=== PATIENT | male | born 1955 | race Caucasian/White ===

== ENCOUNTER 2024-01-09 20:42 | Inpatient (IN) | payer OTHER, SELFPAY ==
[2024-01-09] VITALS (11 sets, daily range): BP systolic 121–154; BP diastolic 57–95; BMI 36.5; BMI 36.6
[2024-01-09 16:30] LABS: % Basophils 0.1 % (0-2); % Eosinophils 0.5 % (0-6); % Immature Granulocytes 0.5 % (0-0.5); % Lymphocytes 15.3 % (20.5-51.1); % Monocytes 4.9 % (1.7-9.3); % Neutrophils 78.7 % (42.2-75.2); Absolute Eosinophils 0.1 10^3/uL (0-0.7); Absolute Immature Granulocytes 0.1 10^3/uL (0-0.05); Absolute Lymphocytes 1.7 10^3/uL (1.2-3.4); Absolute Monocytes 0.5 10^3/uL (0.1-0.6); Absolute Neutrophils 8.7 10^3/uL (1.4-6.5); Hematocrit 36.4 % (39.0-52.0); Hemoglobin 11.3 g/dL (13.0-18.0); Mean Corpuscular Hgb 21.2 pg (27.0-31.0); Mean Corpuscular Volume 68.3 fL (80.0-94.0); Mean Platelet Volume 10.9 fL (7.4-10.4); Nucleated Red Blood Cells % 0 % (-); Platelet Count 363 10^3/uL (130-400); Red Blood Cell Count 5.33 10^6/uL (4.70-6.10); Red Cell Dist. Width 20.6 % (11.5-14.5); White Blood Cell Count 11.1 10^3/uL (4.8-10.8)
--- NOTE | 2024-01-09 16:41 | ED.GENMED ---
History of Present Illness
<Gina Agudelo PA-C - Last Filed: 01/09/24 21:27>
General
Chief Complaint: Heart Rate Problem
Source: patient
Exam Limitations: none
Time Seen by Provider: 01/09/24 16:13
Nursing documentation reviewed up to this point in time: agreed with
Travel History
Have you had any contact with someone who has COVID-19?: No
Do you have any symptoms of coronavirus? Fever > 100 degrees, chills, cough, shortness of breath, sore throat, loss of taste or smell, muscle aches, or headache?: No
History of Present Illness
History of Present Illness:
68 y/o M with h/o afib on eliquis, CA, htn, hld, IDDM
here with feeling of palpitaitons
pt says he was dx with afib a few yeras ago but then had no events until 4 days ago when he spontaneously felt sudden chest pain, tachycardia
hr was 150s
pt's primary dogman/woman is [place] but pt was nearby to [place] so he went there
Patient had previously been on metoprolol for years but they admitted him on a Cardizem drip it sounds as if the patient converted to sinus rhythm before he was discharged but he cannot be sure. He does know that the last couple of days he has been
taking the oral diltiazem and has been feeling a little 'off' like lightheaded and thought it was just a side effect of the medication. Then last evening when he was out to dinner he felt some palpitations and did not finish his dinner. He had no
shortness of breath or chest pain. Patient did not sleep last night and was aware of his heart rate. It was never fast. Today he used his Apple Watch to obtain an ECG which notified him he was in A-fib so that is why he is here. Patient says he
is not short of breath, there is no syncope, leg edema, pleuritic pain in his chest, exertional discomfort. He has never been cardioverted. Patient has an appointment to see Dr. Gaona as a new patient at the end of this month. That is why he is
at this hospital
Past History
<Gina Agudelo PA-C - Last Filed: 01/09/24 21:27>
Past History
ED Past Medical History: Arrthythmia, CAD, HTN, Hypercholesterolemia and IDDM
Social History
Tobacco: Non-smoker
Alcohol: None
Drug: None
Personal:
Review of Systems
<MARCELLO Johnson Last Filed: 01/09/24 21:27>
Review of Systems
Allergies reviewed?: Yes
All Other Systems: Not applicable
Phy Exam
<MARCELLO Johnson Last Filed: 01/09/24 21:27>
Physical Exam
Physical Exam:
GENERAL: Alert , in no apparent distress
EYE: pupils equal and reactive
NECK: Supple
ENT: o/p clr, mmm.
CARDIAC: Irregularly irregular, rate in the 90s
LUNGS: Clear breath sounds bilaterally, no acute respiratory distress, no wheezes/rales/rhonchi
ABDOMEN: Soft, without focal tenderness, no r/g, no cvat, normal bowel sounds
NEUROLOGICAL: Alert and oriented, no focal neuro deficits
SKIN: Warm and dry, skin intact.
MUSCULOSKELETAL: No edema, well perfused. neg uma's sign
PSYCH: Normal and appropriate interaction.
Course
<MARCELLO Johnson Last Filed: 01/09/24 21:27>
Orders/Labs/Results
Orders:
Orders
01/09/24 Lunch
1800 calorie (15 carb) Diabetic
At Your Request: Limited Participation
01/09/24 14:26
EKG [Electrocardiogram (*1)] Urgent
Reason for Study: Palpitations
EKG- Treatment ONCE
01/09/24 16:18
Complete Blood Count/With Diff Urgent
Comprehensive Metabolic Panel Urgent
Glycohemoglobin (HgbA1c) Urgent
Iron Urgent
Comment: ADD ON
TSH Reflex To Free T4 Urgent
Comment: ADD ON
Total Iron Binding Urgent
Comment: ADD ON
Troponin I Urgent
Vitamin B12 Urgent
Comment: ADD ON
01/09/24 16:52
Propofol [Diprivan] 20 ml .ROUTE .STK-MED
Propofol [Diprivan] 20 ml .ROUTE .STK-MED
01/09/24 18:31
Troponin I Q6H
01/09/24 20:03
Admit/Transfer Patient As Directed
Co-Sign Provider:
Level of Care: Inpatient admission
Assign to:: Telemetry
Physician / Group: Francisco Valentine
Diagnosis: Symptomatic Afib
Reason for Telemetry: Arrhythmia
Date to Stop Telemetry: 01/12/24
Time to Stop Telemetry: 11:00
Reason for Hospitalization: Symptomatic Afib
Expected length of stay greater than two midnights?: Yes
ELOS- Estimated Length of Stay in days: 2
I certify the patient meets the requirements for IP care: Yes
01/09/24 20:07
Code Status As Directed
Resuscitation Status: Full Code
01/09/24 20:13
Apixaban [Eliquis] 5 mg PO ONCE ONE
01/09/24 20:14
Dextrose 50%-Water [Dextrose 50% Syringe] 12.5 grams IV [id number] PRN
Glucagon [GlucaGen] 1 mg IM PRN PRN
Bedside Glucose Monitoring As Directed
Frequency: AC&HS
Additional Instructions:: Change to q6h if pt on TPN, tube feeding or not eating
01/09/24 20:15
Apixaban [Eliquis] 5 mg PO BID
01/09/24 20:20
CARDIOLOGY CONSULT Routine
Consulting Provider: Moses Jiménez
Was physician already notified: Yes
Reason for consult: symptomatic afib
01/09/24 20:38
Add On- LAB Routine
Tests Added?: TSH reflex T4, A1c, B12, Iron, TIBC
01/09/24 21:22
Acetaminophen [Tylenol] 650 mg PO Q4HPRN PRN
Bisacodyl [Dulcolax] 10 mg RECTAL [id number] PRN
Docusate W/Senna [Senokot-S] 1 tablet PO BIDPRN PRN
Levalbuterol [Xopenex 1.25 mg Inhalant Solution] 1.25 mg INH R Q6HPRN PRN
Metoprolol [Lopressor] 5 mg IV Q4HPRN PRN
Polyethylene Glycol Powder [Miralax] 17 grams PO DAILYPRN PRN
01/09/24 21:22
Activity As Directed
Activity Level: With Assistance
Vital Signs As Directed
Frequency: Per unit guidelines
Xopenex Reason for Use As Directed
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
01/09/24 22:00
Atorvastatin [Lipitor] 40 mg PO HS
01/10/24 06:00
Basic Metabolic Panel IN AM
Complete Blood Count/No Diff IN AM
Magnesium IN AM
Troponin I IN AM
01/10/24 07:30
Insulin Aspart Corrective Mod [Novolog Flexpen-Moderate Resistance] See Protocol SC AC
insulin lispro-aabc [Lyumjev KwikPen U-100 Insulin] 5 unit SC AC
01/10/24 08:00
Apixaban [Eliquis] 5 mg PO BID
Diltiazem Extended Release [Cardizem Cd] 240 mg PO DAILY
Losartan [Cozaar] 50 mg PO DAILY
Pantoprazole [Protonix] 40 mg PO DAILY
Prednisone [Deltasone] 10 mg PO DAILY
Trelegy Ellipta 1 puff INH R DAILY
febuxostat 40 mg PO DAILY
insulin glargine U-300 conc [Toujeo Max U-300 SoloStar] 10 unit SC DAILY
01/11/24 06:00
Basic Metabolic Panel IN AM
Complete Blood Count/No Diff IN AM
Magnesium IN AM
01/12/24 06:00
Basic Metabolic Panel IN AM
Complete Blood Count/No Diff IN AM
Magnesium IN AM
01/12/24 11:00
DC Protocol for Telemetry ONCE
01/13/24 06:00
Basic Metabolic Panel IN AM
Complete Blood Count/No Diff IN AM
Magnesium IN AM
01/14/24 06:00
Basic Metabolic Panel IN AM
Complete Blood Count/No Diff IN AM
Magnesium IN AM
01/15/24 06:00
Basic Metabolic Panel IN AM
Complete Blood Count/No Diff IN AM
Magnesium IN AM
01/16/24 06:00
Basic Metabolic Panel IN AM
Complete Blood Count/No Diff IN AM
Magnesium IN AM
Abnormal Lab Results
01/09/24 01/09/24
16:18 18:31
WBC 11.1 H 10^3/uL
(4.8-10.8)
Hgb 11.3 L g/dL
(13.0-18.0)
Hct 36.4 L %
(39.0-52.0)
MCV 68.3 L fL
(80.0-94.0)
MCH 21.2 L pg
(27.0-31.0)
MCHC 31.0 L g/dL
(33.0-37.0)
RDW 20.6 H %
(11.5-14.5)
MPV 10.9 H fL
(7.4-10.4)
Abs Immat Gran (auto) 0.1 H 10^3/uL
(0-0.05)
Absolute Neuts (auto) 8.7 H 10^3/uL
(1.4-6.5)
Neutrophils % 78.7 H %
(42.2-75.2)
Lymphocytes % 15.3 L %
(20.5-51.1)
Glucose 144 H mg/dl
(70-99)
Calcium 10.5 H mg/dl
(8.4-10.2)
Troponin I 0.112 H* ng/ml 0.112 H* ng/ml
01/09/24 16:18
01/09/24 16:18
Vital Signs
Initial and Last Documented VS:
Initial Vital Signs
Temp Pulse Resp BP Pulse Ox
98.3 F 93 20 121/57 97
01/09/24 14:17 01/09/24 14:17 01/09/24 14:17 01/09/24 14:17 01/09/24 14:17
Last Documented Vital Signs
Temp Pulse Resp BP Pulse Ox
98.3 F 87 14 145/88 96
01/09/24 16:54 01/09/24 21:15 01/09/24 21:15 01/09/24 21:02 01/09/24 20:30
<Ramy La MD - Last Filed: 01/09/24 18:35>
Orders/Labs/Results
Orders:
Orders
01/09/24 Lunch
1800 calorie (15 carb) Diabetic
At Your Request: Limited Participation
01/09/24 14:26
EKG [Electrocardiogram (*1)] Urgent
Reason for Study: Palpitations
EKG- Treatment ONCE
01/09/24 16:18
Complete Blood Count/With Diff Urgent
Comprehensive Metabolic Panel Urgent
Glycohemoglobin (HgbA1c) Urgent
Iron Urgent
Comment: ADD ON
TSH Reflex To Free T4 Urgent
Comment: ADD ON
Total Iron Binding Urgent
Comment: ADD ON
Troponin I Urgent
Vitamin B12 Urgent
Comment: ADD ON
01/09/24 16:52
Propofol [Diprivan] 20 ml .ROUTE .STK-MED
Propofol [Diprivan] 20 ml .ROUTE .STK-MED
01/09/24 18:31
Troponin I Q6H
01/09/24 20:03
Admit/Transfer Patient As Directed
Co-Sign Provider:
Level of Care: Inpatient admission
Assign to:: Telemetry
Physician / Group: Francisco Valentine
Diagnosis: Symptomatic Afib
Reason for Telemetry: Arrhythmia
Date to Stop Telemetry: 01/12/24
Time to Stop Telemetry: 11:00
Reason for Hospitalization: Symptomatic Afib
Expected length of stay greater than two midnights?: Yes
ELOS- Estimated Length of Stay in days: 2
I certify the patient meets the requirements for IP care: Yes
01/09/24 20:07
Code Status As Directed
Resuscitation Status: Full Code
01/09/24 20:13
Apixaban [Eliquis] 5 mg PO ONCE ONE
01/09/24 20:14
Dextrose 50%-Water [Dextrose 50% Syringe] 12.5 grams IV [id number] PRN
Glucagon [GlucaGen] 1 mg IM PRN PRN
Bedside Glucose Monitoring As Directed
Frequency: AC&HS
Additional Instructions:: Change to q6h if pt on TPN, tube feeding or not eating
01/09/24 20:15
Apixaban [Eliquis] 5 mg PO BID
01/09/24 20:20
CARDIOLOGY CONSULT Routine
Consulting Provider: Moses Jiménez
Was physician already notified: Yes
Reason for consult: symptomatic afib
01/09/24 20:38
Add On- LAB Routine
Tests Added?: TSH reflex T4, A1c, B12, Iron, TIBC
01/09/24 21:22
Acetaminophen [Tylenol] 650 mg PO Q4HPRN PRN
Bisacodyl [Dulcolax] 10 mg RECTAL [id number] PRN
Docusate W/Senna [Senokot-S] 1 tablet PO BIDPRN PRN
Levalbuterol [Xopenex 1.25 mg Inhalant Solution] 1.25 mg INH R Q6HPRN PRN
Metoprolol [Lopressor] 5 mg IV Q4HPRN PRN
Polyethylene Glycol Powder [Miralax] 17 grams PO DAILYPRN PRN
01/09/24 21:22
Activity As Directed
Activity Level: With Assistance
Vital Signs As Directed
Frequency: Per unit guidelines
Xopenex Reason for Use As Directed
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
01/09/24 22:00
Atorvastatin [Lipitor] 40 mg PO HS
01/10/24 06:00
Basic Metabolic Panel IN AM
Complete Blood Count/No Diff IN AM
Magnesium IN AM
Troponin I IN AM
01/10/24 07:30
Insulin Aspart Corrective Mod [Novolog Flexpen-Moderate Resistance] See Protocol SC AC
insulin lispro-aabc [Lyumjev KwikPen U-100 Insulin] 5 unit SC AC
01/10/24 08:00
Apixaban [Eliquis] 5 mg PO BID
Diltiazem Extended Release [Cardizem Cd] 240 mg PO DAILY
Losartan [Cozaar] 50 mg PO DAILY
Pantoprazole [Protonix] 40 mg PO DAILY
Prednisone [Deltasone] 10 mg PO DAILY
Trelegy Ellipta 1 puff INH R DAILY
febuxostat 40 mg PO DAILY
insulin glargine U-300 conc [Toujeo Max U-300 SoloStar] 10 unit SC DAILY
01/11/24 06:00
Basic Metabolic Panel IN AM
Complete Blood Count/No Diff IN AM
Magnesium IN AM
01/12/24 06:00
Basic Metabolic Panel IN AM
Complete Blood Count/No Diff IN AM
Magnesium IN AM
01/12/24 11:00
DC Protocol for Telemetry ONCE
01/13/24 06:00
Basic Metabolic Panel IN AM
Complete Blood Count/No Diff IN AM
Magnesium IN AM
01/14/24 06:00
Basic Metabolic Panel IN AM
Complete Blood Count/No Diff IN AM
Magnesium IN AM
01/15/24 06:00
Basic Metabolic Panel IN AM
Complete Blood Count/No Diff IN AM
Magnesium IN AM
01/16/24 06:00
Basic Metabolic Panel IN AM
Complete Blood Count/No Diff IN AM
Magnesium IN AM
Abnormal Lab Results
01/09/24 01/09/24
16:18 18:31
WBC 11.1 H 10^3/uL
(4.8-10.8)
Hgb 11.3 L g/dL
(13.0-18.0)
Hct 36.4 L %
(39.0-52.0)
MCV 68.3 L fL
(80.0-94.0)
MCH 21.2 L pg
(27.0-31.0)
MCHC 31.0 L g/dL
(33.0-37.0)
RDW 20.6 H %
(11.5-14.5)
MPV 10.9 H fL
(7.4-10.4)
Abs Immat Gran (auto) 0.1 H 10^3/uL
(0-0.05)
Absolute Neuts (auto) 8.7 H 10^3/uL
(1.4-6.5)
Neutrophils % 78.7 H %
(42.2-75.2)
Lymphocytes % 15.3 L %
(20.5-51.1)
Glucose 144 H mg/dl
(70-99)
Calcium 10.5 H mg/dl
(8.4-10.2)
Troponin I 0.112 H* ng/ml 0.112 H* ng/ml
01/09/24 16:18
01/09/24 16:18
Vital Signs
Initial and Last Documented VS:
Initial Vital Signs
Temp Pulse Resp BP Pulse Ox
98.3 F 93 20 121/57 97
01/09/24 14:17 01/09/24 14:17 01/09/24 14:17 01/09/24 14:17 01/09/24 14:17
Last Documented Vital Signs
Temp Pulse Resp BP Pulse Ox
98.3 F 87 14 145/88 96
01/09/24 16:54 01/09/24 21:15 01/09/24 21:15 01/09/24 21:02 01/09/24 20:30
Rachidlt;Gina Agudelo PA-C - Last Filed: 01/09/24 21:27>
MDM/Problems Addressed
Differential Diagnosis Includes:
Arrhythmia, A-fib, CHF
MDM/Problems Addressed:
68-year-old male with history of atrial fibrillation paroxysmally, had been in sinus for years until 4 days ago when he spontaneously went into rapid A-fib and was admitted to another hospital and put on Cardizem which it sounds as if he converted
to sinus rhythm upon discharge. Patient has been compliant with his Eliquis and has been on it since 2015. He is trying to switch his care to cardiology at [facility] and has an appointment in the upcoming weeks which is why he is here today.
Patient says he felt some palpitations last night he was aware of overnight and again today and uses Apple Watch which notified him that he has A-fib rhythm today. It is not particularly fast. He has no signs of heart failure and had a what he
reports to be a normal echo a few days ago. Patient did have a history of a cardiac cath in August which showed some triple-vessel disease which was not treated. He has felt dissatisfied with his care from [facility].
Patient has a stable blood pressure, he is in rate controlled A-fib, he is in no distress. There is no signs of heart failure. Discussed with Dr. la who agreed to cardioversion
Patient was verbally consented by ED physician. Will plan for cardioversion
01/09/2024 1747 PM
Patient's troponin came back at 0.11. I spoke with a PA from [facility] who was able to review his recent admission to tell me that his high-sensitivity troponin was 27 which makes it 0.027
When he had the chest discomfort,
He has not had chest discomfort but has felt some palpitations and also a symptom of fatigue. Patient says he feels wiped out. It seems to be worse with walking around over the last couple of days. This potentially could be a symptom of ACS and
with his known multivessel disease on cardiac cath in August that he is reporting to me it sounds as if it is at least worthwhile repeating the troponin in several hours to make sure it is not rising versus admission to the hospital. I spoke with
dogman/woman who agreed that we had 2 options, admission to hospitalist for troponin trending and medication adjustments and possible cardioversion versus repeating troponin in several hours and if downtrending cardiovert him here and
discharge. I approached the patient with both of these options and he would feel most comfortable being admitted at this point.
<Gina Agudelo PA-C - Last Filed: 01/09/24 21:27>
*Critical Care Note
Total Time (30-74mins, 75-104mins- exclusive of procedures): Not Applicable
ED Attending Note
<Gina Agudelo PA-C - Last Filed: 01/09/24 21:27>
-
Portions of this chart may have been created with voice recognition software.� Occasional wrong word or��sound alike� substitutions may have occurred due to the inherent limitations of voice recognition software.
<Ramy La MD - Last Filed: 01/09/24 18:35>
ED Attending Note
Patient seen and examined by attending physician: Yes
ED Attending Note:
I have seen and evaluated the patient with a [id number] encounter. I have spoken to the advance practicer provider and involved in the medical history, the physical exam, medical decision making.
Evaluation and management service: agree unless noted differently below.
Results interpretation: agree unless noted differently below.
Focused HPI: 68-year-old male with past medical history of hypertension, hyperlipidemia, CAD (apparently multivessel disease on cath in August), atrial fibrillation on qu who presents for evaluation of exertional fatigue, watch says that he is
in A-fib. He has been having palpitations. Patient reports that he had an episode of A-fib with RVR on Thursday and was in [place] emergency department where he was treated with diltiazem and converted to sinus rhythm. He says that since
returning home he has had increasing fatigue particular with exertion and noticed over the past day or 2 some increasing palpitations. His Apple Watch told him that he was in atrial fibrillation. Came to the emergency room for evaluation.
Normally follows with cardiology through [facility] but is scheduled on 02/04/[address] Gaona to establish care with [facility].
Physical exam: Awake alert not in distress. Heart rate 90-100, normotensive. He has no cardiac rubs gallops or murmurs. Lungs clear to auscultation bilaterally. No edema in his extremities.
Medical Decision Makin-year-old male with extensive history as above presents for evaluation of palpitations and exertional dyspnea, increased fatigue. Found to be in A-fib today although heart rate only in the 90s to 100s. EKG confirms A-fib
with controlled rate. He had labs done in triage including a CBC which showed marginal anemia, CMP which showed no clinically significant normalities. Troponin sent in triage which was elevated to 0.1. Plan to admit for trending of troponins and
cardiology consultation.
Discharge Plan
Departure
Patient Disposition: Admit
Date of Disposition: 01/09/24
Time of Disposition: 17:41
Admit to: Telemetry
Presentation/result/management discussed w/ accepting MD/DO: Hospitalist
Condition: Fair
Covid-19: Not Applicable
Discharge Problem:
Non-ST elevation TN (NSTEMI), A-fib
Interventions
Interventions:
*Risk Screen - Suicide Last Done: 01/09/24 14:17
*General Assessment Last Done: 01/09/24 16:10
*Neglect/Abuse Screening Last Done: 01/09/24 14:17
ED- Fall Risk Assessment Last Done: 01/09/24 16:10
*ED COVID-19 Vaccine History Last Done: 01/09/24 14:17
*Nursing Disposition Last Done: 01/09/24 21:19
ED- Cardiac Assessment Last Done: 01/09/24 16:11
ED- Pulmonary Assessment Last Done: 01/09/24 16:11
Discharge Date and Time
Discharge Date/Time: 01/09/24 21:19
[2024-01-09 16:49] LABS: ALT (SGPT) 20 U/L (0-50); AST (SGOT) 22 U/L (17-59); Albumin 4.2 g/dl (3.5-5.0); Alkaline Phosphatase 77 U/L (38-126); Blood Urea Nitrogen 18 mg/dl (9-20); Calcium 10.5 mg/dl (8.4-10.2); Carbon Dioxide 24 mmol/L (22-30); Chloride 107 mmol/L (98-107); Estimated Creatinine Clearance 78 ml/min; Glucose 144 mg/dl (70-99); Potassium 4.8 mmol/L (3.5-5.1); Sodium 139 mmol/L (135-145); Total Bilirubin 0.5 mg/dl (0.2-1.3); Total Protein 6.6 g/dl (6.3-8.2); eGFR > 60.00
[2024-01-09 17:06] LABS: Troponin I 0.112 ng/ml
--- NOTE | 2024-01-09 17:55 | HPS.HSE ---
Family Physician
-
Family Physician: Natalio Alfaro
Chief Complaint
-
Palpitations
History of Present Illness
68M paroxysmal afib Eliquis HTN HLD DM CAD p/w progressive intermittent palpitations fatigue for the past few days. [facility] evaluated and [facility], patient reportedly converted to NSR following
switch home medication metoprolol to Cardizem. Following discharge, patient noted progressive fatigue over the next few days, was prompted to visit ED when he started to feel intermittent palpitations night prior to presentation. Denies fever
chills nausea vomiting diarrhea constipation. Reports chronic cough since catching COVID months ago, recently placed on a steroid taper for bronchitis- down to 10 mg daily prednisone to be completed in the next few days. Patient was noted to be in
afib on ED evaluation with rate relatively well controlled low 100s-90s. Mild leukocytosis (likely d/t steroids) mild microcytic anemia. Troponin elevation was noted without chest pain, trended flat. Patient admitted for further
evaluation/treatment/potential cardioversion symptomatic afib.
Medical History
Past Medical History
Past Medical History: Reports Other (as above)
Past Surgical History: Reports Other (as above)
Social History
Tobacco: Non-smoker
Alcohol: Occasional
Drug: None
Personal:
Living: With Family
Employment: Retired
Family History
Family History: Not pertinent (reviewed)
Allergies / Home Medications
Allergies reflects when Allergies were last updated in [employer].
Home Medications with original date entered in [employer]
Allergy/Medication List:
Allergies
Allergy/AdvReac Type Severity Reaction Status Date / Time
ibuprofen [From Advil] Allergy wheezing Verified 01/09/24 14:25
Home Medications
Trelegy Ellipta 1 puff inhalation R DAILY 01/09/24
apixaban 5 mg tablet (Eliquis) 5 mg PO BID 01/09/24
atorvastatin 40 mg tablet 40 mg PO HS 01/09/24
diltiazem HCl 240 mg capsule,extended release 24 hr 240 mg PO DAILY 01/09/24
empagliflozin 12.5 mg-linaglipt 2.5 mg-metform ER 1,000 mg tablet,24hr (Trijardy XR) 1 tab PO BIDWMEAL 01/09/24
febuxostat 40 mg tablet 40 mg PO DAILY 01/09/24
insulin glargine U-300 conc 300 unit/mL (3 mL) subcutaneous pen (Toujeo Max U-300 SoloStar) 10 unit SC DAILY 01/09/24
insulin lispro-aabc 100 unit/mL subcutaneous pen (Lyumjev KwikPen U-100 Insulin) 5 unit SC AC 01/09/24
losartan 50 mg tablet 50 mg PO DAILY 01/09/24
pantoprazole 40 mg tablet,delayed release 40 mg PO DAILY 01/09/24
prednisone 10 mg tablet 10 mg PO DIRECTED 01/09/24
semaglutide 14 mg tablet (Rybelsus) 14 mg PO DAILY 01/09/24
Review of Systems
-
A 12 point ROS was completed and negative except as noted: Yes
Constitutional: Reports Other (as below)
Physical Exam
Vital Signs
Vital Signs
Temp Pulse Resp BP Pulse Ox
98.3 F 101 13 154/91 97
01/09/24 16:54 01/09/24 17:30 01/09/24 17:30 01/09/24 17:00 01/09/24 17:30
Physical Exam
General: Other (as below)
Laboratory Results
-
01/09/24 16:18
01/09/24 16:18
Laboratory Results
Total Bilirubin 0.5 mg/dl (0.2-1.3) 01/09/24 16:18
AST 22 U/L (17-59) 01/09/24 16:18
ALT 20 U/L (0-50) 01/09/24 16:18
Alkaline Phosphatase 77 U/L (38-126) 01/09/24 16:18
Troponin I 0.112 ng/ml H* 01/09/24 16:18
Impression/Plan
-
ROS
General: Denies fever chills night sweats unexpected weight loss reports fatigue
Neuro: Denies seizure shaking loss of consciousness dizziness vertigo
Psych: denies depression hallucinations confusion manic episodes
Endocrine: Denies polyuria polydipsia polyphagia heat/cold intolerance
HEENT: Denies blindness visual disturbances epistaxis
Pulmonary: reports coughing denies hemoptysis sneezing sob dyspnea on exertion
Cardiovascular: Reports palpitations denies chest pain leg swelling
Hematology: denies signs symptoms of anemia easy bruising/bleeding
Gastrointestinal: denies nausea vomiting diarrhea constipation hematemesis hematochezia melena
Genito-Urinary: denies retention incontinence dysuria
Musculoskeletal: denies joint pain weakness
Dermatology: denies rash laceration bruising
Physical Exam
General: No pallor, cyanosis, or jaundice. Obese
HEENT: Throat clear. PERRLA Normocephalic atraumatic
NECK: Supple. No JVD Carotid Bruits
RESPIRATORY: Lungs clear to auscultation. No crackles wheezes stridor
CVS: Irregularly irregular
ABDOMEN: Soft, non-tender. No distension. BS+/normal.
EXTREMITIES: No peripheral cyanosis or edema.
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 No focal deficits.
IMPRESSION:
68M paroxysmal afib Eliquis HTN HLD DM CAD p/w progressive intermittent palpitations fatigue for the past few days. [facility] evaluated and [facility], patient reportedly converted to NSR following
switch home medication metoprolol to Cardizem. Following discharge, patient noted progressive fatigue over the next few days, was prompted to visit ED when he started to feel intermittent palpitations night prior to presentation. Denies fever
chills nausea vomiting diarrhea constipation. Reports chronic cough since catching COVID months ago, recently placed on a steroid taper for bronchitis- down to 10 mg daily prednisone to be completed in the next few days. Patient was noted to be in
afib on ED evaluation with rate relatively well controlled low 100s-90s. Mild leukocytosis (likely d/t steroids) mild microcytic anemia. Troponin elevation was noted without chest pain, trended flat. Patient admitted for further
evaluation/treatment/potential cardioversion symptomatic afib.
PLAN:
#Symptomatic A-fib
Telemetry admit
Cardio eval
Continue home Cardizem with holding parameters
Continue home Eliquis
IV Lopressor as needed persistent heart rate> 120
#Diabetes
Hold home Trijardy Rybelsus
Continue home long-acting insulin 10 units daily Premeal insulin 5 units
Follow-up A1c
Medium dose sliding scale
#Hypertension
Continue home Cardizem losartan with holding parameters
#Hyperlipidemia
Continue statin
#Coronary artery disease
Continue Eliquis statin
#Reported history bronchitis
#History COVID this year 2023, chronic cough for months since infection
Continue home Trelegy
Continue home prednisone taper 10 mg daily, few days left per patient
Xopenex as needed shortness of breath/wheezing, avoiding albuterol due to reported SVT resulting from medication
DVT PPx Eliquis
GI PPx Protonix
Meds reconciled and resume as appropriate
Full code
I spent a total of 80 minutes with the patient or on the floor. More than 50% of this time involved counseling and coordination of care.
[2024-01-09 19:07] LABS: Troponin I 0.112 ng/ml
[2024-01-09] MEDS: ELIQUIS 5 MG PO (20:59)
[2024-01-09 21:28] LABS: Total Iron Binding Capacity 415 ug/dl (261-462)
[2024-01-09 21:29] LABS: Iron < 20 ug/dl (49-181)
--- NOTE | 2024-01-09 21:45 | PTCARENOTE ---
Received patient from ED via stretcher. Patient ambulated from stretcher to bed with minimal assistance. AAOx3, no current complaints of pain. Oriented patient to room and placed call guerrero within reach.
[2024-01-09 22:29] LABS: Glucose - Point of Care 143 mg/dl (70-99)
[2024-01-09] MEDS: LIPITOR 40 MG PO (23:33)
[2024-01-09 23:49] LABS: TSH Reflex To Free T4 0.99 uIU/ml (0.47-4.68)
[2024-01-10] VITALS (7 sets, daily range): BP systolic 118–155; BP diastolic 71–105
[2024-01-10 00:09] LABS: Vitamin B12 340 pg/ml (239-931)
[2024-01-10 06:19] LABS: Hematocrit 36.7 % (39.0-52.0); Hemoglobin 11.4 g/dL (13.0-18.0); Mean Corp Hgb Conc. 31.1 g/dL (33.0-37.0); Mean Corpuscular Hgb 21.2 pg (27.0-31.0); Mean Corpuscular Volume 68.3 fL (80.0-94.0); Mean Platelet Volume 10.7 fL (7.4-10.4); Platelet Count 351 10^3/uL (130-400); Red Blood Cell Count 5.37 10^6/uL (4.70-6.10); Red Cell Dist. Width 20.3 % (11.5-14.5); White Blood Cell Count 11.1 10^3/uL (4.8-10.8)
[2024-01-10 06:41] LABS: Troponin I 0.113 ng/ml
[2024-01-10 06:42] LABS: Blood Urea Nitrogen 17 mg/dl (9-20); Calcium 10.1 mg/dl (8.4-10.2); Carbon Dioxide 27 mmol/L (22-30); Chloride 104 mmol/L (98-107); Estimated Creatinine Clearance 98 ml/min; Glucose 110 mg/dl (70-99); Magnesium 1.9 mg/dl (1.6-2.3); Potassium 4.2 mmol/L (3.5-5.1); Sodium 137 mmol/L (135-145); eGFR > 60.00
--- NOTE | 2024-01-10 06:58 | W.PN.HOSP.TC ---
Today's Communication/Plan
-
Blood Pressure control
glycemic control
Rate control
npo after midnight for cardioversion
Assessment / Plan
Assessment / Plan
Physical Exam
General: No pallor, cyanosis, or jaundice. Obese
HEENT: Throat clear. PERRLA Normocephalic atraumatic
NECK: Supple. No JVD Carotid Bruits
RESPIRATORY: Lungs clear to auscultation. No crackles wheezes stridor
CVS: Irregularly irregular
ABDOMEN: Soft, non-tender. No distension. BS+/normal.
EXTREMITIES: No peripheral cyanosis or edema.
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 No focal deficits.
IMPRESSION:
HPI: 68M paroxysmal afib Eliquis HTN HLD DM CAD p/w progressive intermittent palpitations fatigue for the past few days. Previously evaluated and treated for Afib RVR at [place] approx a week ago, patient reportedly converted to NSR
following switch home medication metoprolol to Cardizem. Following discharge, patient noted progressive fatigue over the next few days, was prompted to visit ED when he started to feel intermittent palpitations night prior to presentation. Denies
fever chills nausea vomiting diarrhea constipation. Reports chronic cough since catching COVID months ago, recently placed on a steroid taper for bronchitis- down to 10 mg daily prednisone to be completed in the next few days. Patient was noted to
be in afib on ED evaluation with rate relatively well controlled low 100s-90s. Mild leukocytosis (likely d/t steroids) mild microcytic anemia. Troponin elevation was noted without chest pain, trended flat. Patient admitted for further
evaluation/treatment/potential cardioversion symptomatic afib.
PLAN:
#Symptomatic A-fib
Telemetry admit
Cardio eval appreciated
Continue home Cardizem with holding parameters
Continue home Eliquis
IV Lopressor as needed persistent heart rate> 120
Toprol XL 25 mg Daily as per Cardio
NPO after midnight for cardioversion
#Diabetes
Hold home Trijardy Ryjcsus
long-acting insulin 8 units daily Premeal insulin 5 units
A1c 7.5
Medium dose sliding scale
monitor and titrate as necessary
#Hypertension
Continue home Cardizem losartan with holding parameters
Toprol XL added as per cardio
#Hyperlipidemia
Continue statin
#Coronary artery disease
Continue Eliquis statin
#Reported history bronchitis
#History COVID this year 2023, chronic cough for months since infection
Continue home Trelegy
Continue home prednisone taper 10 mg daily, few days left per patient
Xopenex as needed shortness of breath/wheezing, avoiding albuterol due to reported SVT resulting from medication
CXR appreciated no acute abn's
DVT PPx Eliquis
GI PPx Protonix
Full code
I spent a total of 55 minutes with the patient or on the floor. More than 50% of this time involved counseling and coordination of care.
Anticipated Discharge: 24 - 48 hours
Subjective/Interval History
-
Date of Service: January 10, 2024
No acute distress. Had episode of afib RVR in am resolved with prn IV lopressor. Patient otherwise reports feeling well. Denies chest pain.
Objective Data
-
Labs:
Laboratory Results
01/09/24 01/10/24
16:18 06:05
WBC 11.1 H
Hgb 11.4 L
Hct 36.7 L
Plt Count 351
Sodium 139 137
Potassium 4.8 4.2
Chloride 107 104
Carbon Dioxide 24 27
BUN 18 17
Creatinine 1.0 0.8
Glucose 144 H 110 H
Calcium 10.5 H 10.1
Total Bilirubin 0.5
AST 22
ALT 20
Alkaline Phosphatase 77
Vital Signs:
Vital Signs
Temp Pulse Resp BP Pulse Ox
97.7 F 97 18 140/92 98
01/10/24 03:26 01/10/24 03:26 01/10/24 03:26 01/10/24 04:38 01/10/24 03:26
I&O
01/08/24 01/09/24 01/10/24
06:59 06:59 06:59
Output Total 1700 / 1700
Balance -1700 / -1700
[2024-01-10 07:56] LABS: Glucose - Point of Care 120 mg/dl (70-99)
[2024-01-10] MEDS: NOVOLOG FLEXPEN-MODERATE RESISTANCE SC ×2 (08:10→12:23)
[2024-01-10] MEDS: COZAAR 50 MG PO (08:18)
[2024-01-10] MEDS: PROTONIX 40 MG PO (08:18)
[2024-01-10] MEDS: CARDIZEM CD 240 MG PO (08:18)
[2024-01-10] MEDS: ELIQUIS 5 MG PO ×2 (08:18→21:40)
[2024-01-10] MEDS: LANTUS 0.0800000000000000017 UNITS SC (08:19)
[2024-01-10] MEDS: DELTASONE 10 MG PO (08:19)
[2024-01-10] MEDS: NOVOLOG FLEXPEN 5 UNITS SC ×3 (08:21→16:50)
[2024-01-10] MEDS: LOPRESSOR 5 MG IV (09:20)
[2024-01-10 10:17] LABS: Glycohemoglobin (HgbA1c) 7.5 % (4.0-5.6)
--- NOTE | 2024-01-10 10:24 | PTCARENOTE ---
Pt. HR sustaining 120s-140s. IV Lopressor given at 0920 as ordered with effective results. Pt. HR now 80-90s. Will continue to monitor pt.
--- NOTE | 2024-01-10 11:59 | CON.CAR ---
Medical History
-
Chief Complaint: chest pains/fatigue
History of Present Illness:
68-year-old male with past medical history of paroxysmal atrial fibrillation, coronary artery disease, insulin-dependent diabetes, hypertension, and hyperlipidemia presents to [facility] with palpitations, chest discomfort and fatigue. He
is a patient of [facility] cardiology who desires to transfer his care to [place]. He states he has a history of SVT for years and was on Eliquis. Earlier this week he felt chest discomfort and palpitations and went to [facility] for
atrial fibrillation. They placed him on IV Cardizem and he states he converted back into sinus rhythm. His Toprol was stopped and he was sent home on diltiazem 240 mg daily. Yesterday he again was feeling poorly and felt palpitations and chest
discomfort and fatigue. He was found to be in atrial fibrillation with modestly elevated rates. He does get a very mild chest ache at times with the A-fib. He was diagnosed with COVID in August and has had a chronic cough and felt malaise for
months. His cough continues to persist. He denies any orthopnea or PND. He has no syncope. He has no bleeding. He has been compliant with his Eliquis. He has an appoint with Dr. Gaona at the end of the month.
Past Medical History
Past Medical History: Arrhythmias (SVT and paroxysmal atrial fibrillation), CAD (Reported cath at [place] in August 2023 with moderate coronary artery disease. ), HTN, Hypercholesterolemia and IDDM
Past Surgical History: None
Social History
Tobacco: Non-Smoker
Alcohol: None
Drug: None
Living: With Family
Employment: Retired
Family History
Family History: CAD and Hypertension
Allergies / Home Medications
Allergy/AdvReac Type Severity Reaction Status Date / Time
ibuprofen [From Advil] Allergy wheezing Verified 01/09/24 14:25
�Medication �Instructions �Recorded �Confirmed �Type
Trelegy Ellipta 1 puff inhalation R DAILY 01/09/24 01/09/24 History
Lung/Breathing Issues
apixaban 5 mg tablet (Eliquis) 5 mg PO BID Blood Clot 01/09/24 01/09/24 History
Prevention/Tx
atorvastatin 40 mg tablet 40 mg PO HS High Cholesterol 01/09/24 01/09/24 History
diltiazem HCl 240 mg 240 mg PO DAILY Arrhythmia 01/09/24 01/09/24 History
capsule,extended release 24 hr
empagliflozin 12.5 mg-linaglipt 1 tab PO BIDWMEAL Diabetes 01/09/24 01/09/24 History
2.5 mg-metform ER 1,000 mg
tablet,24hr (Trijardy XR)
febuxostat 40 mg tablet 40 mg PO DAILY Gout 01/09/24 01/09/24 History
insulin glargine U-300 conc 300 10 unit SC DAILY Diabetes 01/09/24 01/09/24 History
unit/mL (3 mL) subcutaneous pen
(Toujeo Max U-300 SoloStar)
insulin lispro-aabc 100 unit/mL 5 unit SC AC Diabetes 01/09/24 01/09/24 History
subcutaneous pen (Lyumjev KwikPen
U-100 Insulin)
losartan 50 mg tablet 50 mg PO DAILY Blood Pressure 01/09/24 01/09/24 History
pantoprazole 40 mg tablet,delayed 40 mg PO DAILY Gastrointestinal 01/09/24 01/09/24 History
release Issue
prednisone 10 mg tablet 10 mg PO DIRECTED 01/09/24 01/09/24 History
Anti-Inflammatory
semaglutide 14 mg tablet (Rybelsus) 14 mg PO DAILY Diabetes 01/09/24 01/09/24 History
Review of Systems
-
History Source: Patient
Constitutional: Fatigue
EENT: No Symptoms
Respiratory: Trouble Breathing
Cardiac: Chest Pain and Palpitations
Abdomen/GI: No Symptoms
: No Symptoms
Musculoskeletal: No Symptoms
Skin: No Symptoms
Neurological: No Symptoms
Endocrine: No Symptoms
Hematologic/Lymphatic: No Symptoms
Physical Exam
Vital Signs
Temp Pulse Resp BP Pulse Ox
97.8 F 143 16 137/86 95
01/10/24 07:41 01/10/24 09:20 01/10/24 07:41 01/10/24 09:20 01/10/24 07:41
Lab Results
01/10/24 06:05
01/10/24 06:05
Troponin I 0.113 ng/ml H* 01/10/24 06:05
Physical Exam
General: Well Developed, Well Nourished and No Apparent Distress
HEENT: Normocephalic, Anicteric and Moist Mucous Membranes
Respiratory: Rhonchi and Non Labored Respirations
Cardiac: S1/S2, Irregular Rhythm and Murmur (08/15 syst LSB)
GI: Soft, Non Tender and Non Distended
Genito-urinary: No Costovertebral Tender
Musculoskeletal: No Edema
Skin: Warm and Dry
Neuro: AO x 3
Hematologic/Lymphatic: No Lymphadenopathy
Psych: Calm
Impression / Plan
-
Assess:
Paroxysmal symptomatic atrial fibrillation
Coronary artery disease
Hypertension
Hyperlipidemia
Insulin-dependent diabetes
Non-SD troponin elevation
Cough/bronchitis status post COVID August 2023
Echo 01/06/24: EF 55 to 60%, mild AI, mild MR, dilated atrium
Plan:
He presents with continued symptomatic atrial fibrillation and atypical chest discomfort. I suspect his abnormal troponin is likely a non-SD troponin elevation.
Records are unavailable and he reportedly has significant coronary artery disease which was stable by cath in August. We will review these records.
Continue Eliquis. Continue diltiazem to 240 mg daily. I will add back Toprol 25 mg daily.
Check PA and lateral chest x-ray with his cough and bronchitis.
Plan will be for cardioversion in a.m. He has been compliant with his Eliquis. He was on the Eliquis prior to his recent hospitalization at [place].
For now I would hold off on antiarrhythmic therapy.
I would continue conservative therapy for his coronary artery disease for now. Continue atorvastatin.
Data Reviewed
-
EKG: Tracing Personally Visualized and interpreted
Medical Tests (Nuc Med, Echo etc): Report Reviewed by me
Labs: Discussed with Physician
Old Records: Reviewed
[2024-01-10 12:14] LABS: Glucose - Point of Care 137 mg/dl (70-99)
[2024-01-10] MEDS: TOPROL XL 25 MG PO (13:23)
--- NOTE | 2024-01-10 14:37 | CM ---
Alert awake oriented patient who lives with his Roya in a 2 story home with 1 step to enter and 12 steps to bed and bathroom. He is independent in driving and in all activities of daily living.No adaptive devices.He was offered VN he declined
need.
NO VN hx / No SNF history
Pharmacy [facility] &[address] [place] [address] Alfaro
PLAN Home Declined VN
[2024-01-10 16:44] LABS: Glucose - Point of Care 193 mg/dl (70-99)
[2024-01-10] MEDS: NOVOLOG FLEXPEN-MODERATE RESISTANCE 1 UNITS SC (16:50)
[2024-01-10 21:24] LABS: Glucose - Point of Care 130 mg/dl (70-99)
[2024-01-10] MEDS: LIPITOR 40 MG PO (21:40)
[2024-01-10] MEDS: XOPENEX 1.25 MG INHALANT SOLUTION INH (21:58)
[2024-01-11] VITALS (8 sets, daily range): BP systolic 93–137; BP diastolic 60–97
[2024-01-11 07:31] LABS: Hematocrit 41.2 % (39.0-52.0); Hemoglobin 12.3 g/dL (13.0-18.0); Mean Corp Hgb Conc. 29.9 g/dL (33.0-37.0); Mean Corpuscular Hgb 21.1 pg (27.0-31.0); Mean Corpuscular Volume 70.5 fL (80.0-94.0); Mean Platelet Volume 11.1 fL (7.4-10.4); Platelet Count 345 10^3/uL (130-400); Red Blood Cell Count 5.84 10^6/uL (4.70-6.10); Red Cell Dist. Width 20.6 % (11.5-14.5)
[2024-01-11 07:41] LABS: Blood Urea Nitrogen 20 mg/dl (9-20); Calcium 10.4 mg/dl (8.4-10.2); Carbon Dioxide 26 mmol/L (22-30); Chloride 104 mmol/L (98-107); Estimated Creatinine Clearance 87 ml/min; Glucose 122 mg/dl (70-99); Potassium 4.3 mmol/L (3.5-5.1); Sodium 137 mmol/L (135-145); eGFR > 60.00
[2024-01-11 08:37] LABS: Glucose - Point of Care 129 mg/dl (70-99)
[2024-01-11] MEDS: CARDIZEM CD 240 MG PO (08:39)
[2024-01-11] MEDS: PROTONIX 40 MG PO (08:40)
[2024-01-11] MEDS: COZAAR 50 MG PO (08:40)
[2024-01-11] MEDS: NOVOLOG FLEXPEN SC (08:40)
[2024-01-11] MEDS: TOPROL XL 25 MG PO (08:40)
[2024-01-11] MEDS: DELTASONE 10 MG PO (08:40)
[2024-01-11] MEDS: NOVOLOG FLEXPEN-MODERATE RESISTANCE SC (08:40)
[2024-01-11] MEDS: ELIQUIS 5 MG PO ×2 (08:40→21:03)
[2024-01-11] MEDS: LANTUS 0.0800000000000000017 UNITS SC (10:05)
--- NOTE | 2024-01-11 10:28 | W.PN.CARDCBS ---
Today's Communication / Plan
-
cardioversion today followed by sotalol 80 mg bid
follow Qt with sotalol load
d/c 01/12
d/w Hospitalist
Impression / Plan
-
Assess:
Paroxysmal symptomatic atrial fibrillation
Coronary artery disease
Hypertension
Hyperlipidemia
Insulin-dependent diabetes
Non-CT troponin elevation
Cough/bronchitis status post COVID August 2023
Echo 01/06/24: EF 55 to 60%, mild AI, mild MR, dilated atrium
Plan:
Remains in afib
For cardioversion today and oscar load with sotalol 80 mg po bid in hospital with probable d/c on 01/12
He has appt with Jimenez as outpt to discuss ablation on 02/04/24
Get records from [place] regarding cath and last echo
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
Subjective
Date of Service: January 11, 2024
no complaints
Objective
Labs:
01/11/24 06:36
01/11/24 06:36
Labs
Hgb 12.3 g/dL (13.0-18.0) L 01/11/24 06:36
Hct 41.2 % (39.0-52.0) 01/11/24 06:36
Plt Count 345 10^3/uL (130-400) 01/11/24 06:36
Sodium 137 mmol/L (135-145) 01/11/24 06:36
Potassium 4.3 mmol/L (3.5-5.1) 01/11/24 06:36
BUN 20 mg/dl (9-20) 01/11/24 06:36
Creatinine 0.9 mg/dL (0.7-1.3) 01/11/24 06:36
Glucose 122 mg/dl (70-99) H 01/11/24 06:36
Troponins
01/09/24 01/09/24 01/10/24
16:18 18:31 06:05
Troponin I 0.112 H* 0.112 H* 0.113 H*
Vital Signs and I&O:
Vital Signs
Temp Pulse Resp BP Pulse Ox
97.8 F 106 16 137/87 96
01/11/24 07:05 01/11/24 08:39 01/11/24 08:23 01/11/24 08:39 01/11/24 08:23
Vital Signs
Temp Pulse Resp BP Pulse Ox
97.8 F 106 16 137/87 96
01/11/24 07:05 01/11/24 08:39 01/11/24 08:23 01/11/24 08:39 01/11/24 08:23
Intake & Output
01/09/24 01/10/24 01/11/24 01/12/24
06:59 06:59 06:59 06:59
Intake Total 950 / 950
Output Total 1700 / 1700 1200 / 1200
Balance -1700 / -1700 -250 / -250
Physical Exam
Physical Exam
General: Well developed, well nourished in NAD.
Neck: Supple, no JVD, HJR, carotids +2 B/L, no bruits bilaterally.
Heart: Non displaced PMI, Irreg, no murmurs, No S3, S4, no rubs.
Lungs: Clear to auscultation bilaterally, no wheeze, rhonchi, rubs bilaterally,
normal expiratory phase.
Abdomen: Normal bowel sounds, soft, non-tender, non-distended.
Extremities: No clubbing, cyanosis or edema bilaterally.
Neuro: Grossly nonfocal, awake, alert and oriented x3.
--- NOTE | 2024-01-11 11:30 | CM ---
Patient seen at bedside. Patient daughter also present. Per physician patient for medication loading and will need to be here for a few days. CM will continue to follow for discharge planning needs.
Plan; home with VN
--- NOTE | 2024-01-11 12:43 | W.PN.UPDATE ---
Update Note
Progress Note Update
Successful DCCV to sinus rhythm this AM. Full report to follow.
[2024-01-11 13:35] LABS: Glucose - Point of Care 190 mg/dl (70-99)
--- NOTE | 2024-01-11 14:19 | W.PN.HOSP.TC ---
Today's Communication/Plan
-
post CV now Sotalol load
resume diet
Assessment / Plan
Assessment / Plan
Assessment:
Symptomatic A-fib, recurrent
- s/p CV today
- on Sotalol now
- continue Eliquis, Toprol XL
- DCA cards following
IDDM
- A1c 7.5
- Hold home Trijardy, Rybelsus
- continue long acting, short acting and SSI
Essential Hypertension
- continue Cardizem/Toprol XL/Losartan
Hyperlipidemia
- continue statin
Coronary artery disease
- continue Eliquis/statin
Reported history bronchitis
History COVID this year 2023, chronic cough for months since infection
- continue home Trelegy
- continue home prednisone taper 10 mg daily, few days left per patient
- Xopenex as needed shortness of breath/wheezing, avoiding albuterol due to reported SVT resulting from medication
DVT ppx: Eliquis
Code: Full
Anticipated Discharge: > 48 hours
Subjective/Interval History
-
Date of Service: January 11, 2024
late entry, seen prior to later successful CV no complaints then
Objective Data
-
Labs:
Laboratory Results
01/11/24
06:36
WBC 11.0 H
Hgb 12.3 L
Hct 41.2
Plt Count 345
Sodium 137
Potassium 4.3
Chloride 104
Carbon Dioxide 26
BUN 20
Creatinine 0.9
Glucose 122 H
Calcium 10.4 H
Vital Signs:
Vital Signs
Temp Pulse Resp BP Pulse Ox
98.2 F 68 18 118/74 96
01/11/24 13:31 01/11/24 13:31 01/11/24 13:31 01/11/24 13:31 01/11/24 13:31
I&O
01/10/24 01/11/24 01/12/24
06:59 06:59 06:59
Intake Total 950 / 950
Output Total 1700 / 1700 1200 / 1200
Balance -1700 / -1700 -250 / -250
Physical Exam
-
General: No Apparent Distress
HEENT: Normocephalic
Respiratory: Negative Wheezes
Cardiac: Irregular Rhythm
GI: Soft and Nontender
Neuro: AO x 3
Hematologic / Lymphatic: No Lymphadenopathy
Psych: Calm
Data Reviewed
-
Total Time Spent with Patient (in minutes): 42
Labs: Labs Reviewed by me
[2024-01-11] MEDS: NOVOLOG FLEXPEN-MODERATE RESISTANCE 1 UNITS SC (16:15)
[2024-01-11] MEDS: NOVOLOG FLEXPEN 5 UNITS SC ×2 (16:15→18:07)
[2024-01-11 17:07] LABS: Glucose - Point of Care 230 mg/dl (70-99)
[2024-01-11] MEDS: NOVOLOG FLEXPEN-MODERATE RESISTANCE 3 UNITS SC (18:00)
--- NOTE | 2024-01-11 19:30 | PTCARENOTE ---
Received patient this am AAOx3. Pt NPO. Pt off unit for Cardioversion. Pt returned to unit. VSS. Pt offered no complaints. Pt in NSR on Tele. Made patient comfortable. Cont to assess patient status.
[2024-01-11] MEDS: LIPITOR 40 MG PO (21:01)
[2024-01-11] MEDS: BETAPACE 80 MG PO (21:03)
[2024-01-11 21:46] LABS: Glucose - Point of Care 114 mg/dl (70-99)
[2024-01-12] VITALS (7 sets, daily range): BP systolic 102–136; BP diastolic 54–74
[2024-01-12 04:54] LABS: Hematocrit 37.8 % (39.0-52.0); Hemoglobin 11.4 g/dL (13.0-18.0); Mean Corp Hgb Conc. 30.2 g/dL (33.0-37.0); Mean Corpuscular Hgb 21.3 pg (27.0-31.0); Mean Corpuscular Volume 70.7 fL (80.0-94.0); Platelet Count 297 10^3/uL (130-400); Red Blood Cell Count 5.35 10^6/uL (4.70-6.10); Red Cell Dist. Width 20.2 % (11.5-14.5); White Blood Cell Count 11.5 10^3/uL (4.8-10.8)
[2024-01-12 05:29] LABS: Blood Urea Nitrogen 23 mg/dl (9-20); Calcium 10.5 mg/dl (8.4-10.2); Carbon Dioxide 27 mmol/L (22-30); Chloride 104 mmol/L (98-107); Estimated Creatinine Clearance 71 ml/min; Glucose 112 mg/dl (70-99); Potassium 4.6 mmol/L (3.5-5.1); Sodium 138 mmol/L (135-145); eGFR > 60.00
[2024-01-12] MEDS: XOPENEX 1.25 MG INHALANT SOLUTION INH ×2 (07:19→21:16)
[2024-01-12] MEDS: NON-FORMULARY ITEM 1 UNIT INH (07:19)
[2024-01-12 07:21] LABS: Glucose - Point of Care 119 mg/dl (70-99)
[2024-01-12] MEDS: NOVOLOG FLEXPEN-MODERATE RESISTANCE SC ×2 (07:42→12:09)
[2024-01-12] MEDS: COZAAR 50 MG PO (09:07)
[2024-01-12] MEDS: TOPROL XL 25 MG PO (09:07)
[2024-01-12] MEDS: PROTONIX 40 MG PO (09:07)
[2024-01-12] MEDS: BETAPACE 80 MG PO ×2 (09:08→20:04)
[2024-01-12] MEDS: DELTASONE 10 MG PO (09:08)
[2024-01-12] MEDS: ELIQUIS 5 MG PO ×2 (09:08→20:04)
[2024-01-12] MEDS: CARDIZEM CD 240 MG PO (09:08)
[2024-01-12] MEDS: LANTUS 0.0800000000000000017 UNITS SC (09:09)
[2024-01-12] MEDS: NOVOLOG FLEXPEN 5 UNITS SC ×3 (09:19→17:52)
--- NOTE | 2024-01-12 10:44 | W.PN.HOSP.TC ---
Today's Communication/Plan
-
continue Sotalol and monitor EKGs
Assessment / Plan
Assessment / Plan
Assessment:
Symptomatic A-fib, recurrent
- s/p CV 01/11/24
- continue Sotalol; monitor EKGs
- continue Eliquis, Toprol XL
- DCA cards following
IDDM
- A1c 7.5
- Hold home Trijardy, Rybelsus
- continue long acting, short acting and SSI
Essential Hypertension
- continue Cardizem/Toprol XL/Losartan
Hyperlipidemia
- continue statin
Coronary artery disease
- continue Eliquis/statin
Reported history bronchitis
History COVID this year 2023, chronic cough for months since infection
- continue home Trelegy
- continue home prednisone taper 10 mg daily; completing on 01/13/24
- Xopenex as needed shortness of breath/wheezing, avoiding albuterol due to reported SVT resulting from medication
DVT ppx: Eliquis
Code: Full
Anticipated Discharge: Within 24 hours
Subjective/Interval History
-
Date of Service: January 12, 2024
no new complaints
tolerating Sotalol well
Objective Data
-
Labs:
Laboratory Results
01/12/24
04:33
WBC 11.5 H
Hgb 11.4 L
Hct 37.8 L
Plt Count 297
Sodium 138
Potassium 4.6
Chloride 104
Carbon Dioxide 27
BUN 23 H
Creatinine 1.1
Glucose 112 H
Calcium 10.5 H
Vital Signs:
Vital Signs
Temp Pulse Resp BP Pulse Ox
97.6 F 63 18 136/74 96
01/12/24 07:35 01/12/24 07:35 01/12/24 07:35 01/12/24 09:08 01/12/24 07:35
I&O
01/11/24 01/12/24 01/13/24
06:59 06:59 06:59
Intake Total 950 / 950 1320 / 1320
Output Total 1200 / 1200
Balance -250 / -250 1320 / 1320
Physical Exam
-
General: No Apparent Distress
HEENT: Normocephalic and Atraumatic
Respiratory: Negative Wheezes
Cardiac: Regular Rhythm and S1/S2
Neuro: AO x 3
Psych: Calm
Data Reviewed
-
Total Time Spent with Patient (in minutes): 45
Labs: Labs Reviewed by me
[2024-01-12 11:59] LABS: Glucose - Point of Care 125 mg/dl (70-99)
--- NOTE | 2024-01-12 13:56 | W.PN.CARDCBS ---
Today's Communication / Plan
-
Stable cardiology status status post cardioversion
Tolerating sotalol load normal QT interval
Discharge 6/5 PM after fifth dose
Get records from [place]
Impression / Plan
-
Assess:
Paroxysmal symptomatic atrial fibrillation status post cardioversion to sinus rhythm 01/11/2024
Coronary artery disease
Hypertension
Hyperlipidemia
Insulin-dependent diabetes
Non-MS troponin elevation
Cough/bronchitis status post COVID August 2023
Echo 01/06/24: EF 55 to 60%, mild AI, mild MR, dilated atrium
Plan:
He remains in sinus rhythm status post cardioversion to sinus rhythm on 01/11/2024
He is tolerating sotalol and has received 2 out of 5 doses.
He will complete 5 doses on 01/12 PM and will move up p.m. dose to discharge on 01/12 PM
He has appt with Jimenez as outpt to discuss ablation on 02/04/24
Get records from [place] regarding cath and last echo
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
Subjective
Date of Service: January 12, 2024
No complaints
Objective
Labs:
01/12/24 04:33
01/12/24 04:33
Labs
Hgb 11.4 g/dL (13.0-18.0) L 01/12/24 04:33
Hct 37.8 % (39.0-52.0) L 01/12/24 04:33
Plt Count 297 10^3/uL (130-400) 01/12/24 04:33
Sodium 138 mmol/L (135-145) 01/12/24 04:33
Potassium 4.6 mmol/L (3.5-5.1) 01/12/24 04:33
BUN 23 mg/dl (9-20) H 01/12/24 04:33
Creatinine 1.1 mg/dL (0.7-1.3) 01/12/24 04:33
Glucose 112 mg/dl (70-99) H 01/12/24 04:33
Troponins
01/09/24 01/09/24 01/10/24
16:18 18:31 06:05
Troponin I 0.112 H* 0.112 H* 0.113 H*
Vital Signs and I&O:
Vital Signs
Temp Pulse Resp BP Pulse Ox
97.5 F 65 18 120/64 97
01/12/24 11:49 01/12/24 11:49 01/12/24 11:49 01/12/24 11:49 01/12/24 12:42
Vital Signs
Temp Pulse Resp BP Pulse Ox
97.5 F 65 18 120/64 97
01/12/24 11:49 01/12/24 11:49 01/12/24 11:49 01/12/24 11:49 01/12/24 12:42
Intake & Output
01/10/24 01/11/24 01/12/24 01/13/24
06:59 06:59 06:59 06:59
Intake Total 950 / 950 1320 / 1320
Output Total 1700 / 1700 1200 / 1200
Balance -1700 / -1700 -250 / -250 1320 / 1320
Physical Exam
Physical Exam
General: Well developed, well nourished in NAD.
Neck: Supple, no JVD, HJR, carotids +2 B/L, no bruits bilaterally.
Heart: Non displaced PMI, RRR, no murmurs, No S3, S4, no rubs.
Lungs: Clear to auscultation bilaterally, no wheeze, rhonchi, rubs bilaterally,
normal expiratory phase.
Extremities: No clubbing, cyanosis or edema bilaterally.
Neuro: Grossly nonfocal, awake, alert and oriented x3.
--- NOTE | 2024-01-12 16:21 | CM ---
Spoke with patient in room.
He said he was going to drive himself home at [place].
Offered VN he decline need.
IMM reviewed signed on chart.
PLAN Home no needs
[2024-01-12 16:33] LABS: Glucose - Point of Care 154 mg/dl (70-99)
[2024-01-12] MEDS: NOVOLOG FLEXPEN-MODERATE RESISTANCE 1 UNITS SC (17:51)
[2024-01-12 21:07] LABS: Glucose - Point of Care 192 mg/dl (70-99)
[2024-01-12] MEDS: LIPITOR 40 MG PO (22:01)
[2024-01-13 03:16] VITALS: BP 118/73
[2024-01-13 05:48] LABS: Glucose - Point of Care 115 mg/dl (70-99)
[2024-01-13 05:51] LABS: Hematocrit 36.3 % (39.0-52.0); Hemoglobin 11.1 g/dL (13.0-18.0); Mean Corp Hgb Conc. 30.6 g/dL (33.0-37.0); Mean Corpuscular Hgb 21.2 pg (27.0-31.0); Mean Corpuscular Volume 69.4 fL (80.0-94.0); Mean Platelet Volume 11.1 fL (7.4-10.4); Platelet Count 287 10^3/uL (130-400); Red Blood Cell Count 5.23 10^6/uL (4.70-6.10); Red Cell Dist. Width 20.5 % (11.5-14.5)
[2024-01-13] MEDS: BETAPACE 80 MG PO ×2 (06:09→16:05)
[2024-01-13 06:18] LABS: Blood Urea Nitrogen 21 mg/dl (9-20); Carbon Dioxide 26 mmol/L (22-30); Chloride 104 mmol/L (98-107); Estimated Creatinine Clearance 71 ml/min; Glucose 109 mg/dl (70-99); Potassium 4.1 mmol/L (3.5-5.1); Sodium 139 mmol/L (135-145); eGFR > 60.00
[2024-01-13 06:58] LABS: Glucose - Point of Care 162 mg/dl (70-99)
[2024-01-13] MEDS: NON-FORMULARY ITEM 1 UNIT INH (07:32)
[2024-01-13] MEDS: XOPENEX 1.25 MG INHALANT SOLUTION INH (07:38)
[2024-01-13 07:40] VITALS: BP 132/69
[2024-01-13] MEDS: LANTUS 0.0800000000000000017 UNITS SC (08:58)
[2024-01-13] MEDS: NOVOLOG FLEXPEN-MODERATE RESISTANCE 1 UNITS SC ×2 (08:59→11:48)
[2024-01-13] MEDS: NOVOLOG FLEXPEN 5 UNITS SC ×3 (08:59→17:25)
[2024-01-13] MEDS: TOPROL XL 25 MG PO (09:00)
[2024-01-13] MEDS: COZAAR 50 MG PO (09:00)
[2024-01-13] MEDS: CARDIZEM CD 240 MG PO (09:00)
[2024-01-13] MEDS: PROTONIX 40 MG PO (09:00)
[2024-01-13] MEDS: ELIQUIS 5 MG PO (09:01)
[2024-01-13] MEDS: FLUSH (NSS) 1 FLUSH IV (09:02)
--- NOTE | 2024-01-13 10:49 | W.PN.HOSP.TC ---
Today's Communication/Plan
-
dc to home if PM EKG stable after Cards review
Assessment / Plan
Assessment / Plan
Assessment:
Symptomatic A-fib, recurrent
- s/p CV 01/11/24
- continue Sotalol; monitor EKGs
- continue Eliquis, Toprol XL
- DCA cards following
IDDM
- A1c 7.5
- Hold home Trijardy, Rybelsus
- continue long acting, short acting and SSI
Essential Hypertension
- continue Cardizem/Toprol XL/Losartan
Hyperlipidemia
- continue statin
Coronary artery disease
- continue Eliquis/statin
Reported history bronchitis
History COVID this year 2023, chronic cough for months since infection
- continue home Trelegy
- continue home prednisone taper 10 mg daily; completed
- Xopenex as needed shortness of breath/wheezing, avoiding albuterol due to reported SVT resulting from medication
DVT ppx: Eliquis
Code: Full
More than 30 minutes spent in discharge including
Final examination of the patient
Summarizing hospital stay
Instructions for continuing care to all relevant caregivers
Preparation of discharge records, prescriptions, and referral forms
Total time spent (in minutes): 40
Anticipated Discharge: Today
Subjective/Interval History
-
Date of Service: January 13, 2024
denies any new complaints at present
tolerating Sotalol
Objective Data
-
Labs:
Laboratory Results
01/13/24
04:32
WBC 9.0
Hgb 11.1 L
Hct 36.3 L
Plt Count 287
Sodium 139
Potassium 4.1
Chloride 104
Carbon Dioxide 26
BUN 21 H
Creatinine 1.1
Glucose 109 H
Calcium 10.0
Vital Signs:
Vital Signs
Temp Pulse Resp BP Pulse Ox
98.2 F 62 24 132/69 94
01/13/24 07:40 01/13/24 09:00 01/13/24 07:40 01/13/24 09:00 01/13/24 07:40
I&O
01/12/24 01/13/24 01/14/24
06:59 06:59 06:59
Intake Total 1320 / 1320 760 / 760
Balance 1320 / 1320 760 / 760
Physical Exam
-
General: No Apparent Distress
HEENT: Normocephalic and Atraumatic
Respiratory: Negative Wheezes
Cardiac: Regular Rhythm
GI: Soft
Neuro: AO x 3
Hematologic / Lymphatic: No Lymphadenopathy
Psych: Calm
Data Reviewed
-
Total Time Spent with Patient (in minutes): 40
Labs: Labs Reviewed by me
--- NOTE | 2024-01-13 10:58 | W.DS.TRANS ---
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
-
Discharge Instructions:
Discharge Diagnosis/Procedures symptomatic Afib s/p Cardioversion 01/10 and
sotalol load
Diet Diabetic, Carb Controlled
Activity As tolerated
Bathing Restrictions None
Instructions:
Stand-Alone Forms:
Changes to Home Medications: Yes
Discharge Medications:
DC Medications w/original date entered in [employer]
Trelegy Ellipta 1 puff inhalation R DAILY Lung/Breathing Issues 01/09/24
apixaban 5 mg tablet (Eliquis) 5 mg PO BID Blood Clot Prevention/Tx 01/09/24
atorvastatin 40 mg tablet 40 mg PO HS High Cholesterol 01/09/24
diltiazem HCl 240 mg capsule,extended release 24 hr 240 mg PO DAILY Arrhythmia 01/09/24
empagliflozin 12.5 mg-linaglipt 2.5 mg-metform ER 1,000 mg tablet,24hr (Trijardy XR) 1 tab PO BIDWMEAL Diabetes 01/09/24
febuxostat 40 mg tablet 40 mg PO DAILY Gout 01/09/24
insulin glargine U-300 conc 300 unit/mL (3 mL) subcutaneous pen (Toujeo Max U-300 SoloStar) 10 unit SC DAILY Diabetes 01/09/24
insulin lispro-aabc 100 unit/mL subcutaneous pen (Lyumjev KwikPen U-100 Insulin) 5 unit SC AC Diabetes 01/09/24
losartan 50 mg tablet 50 mg PO DAILY Blood Pressure 01/09/24
pantoprazole 40 mg tablet,delayed release 40 mg PO DAILY Gastrointestinal Issue 01/09/24
semaglutide 14 mg tablet (Rybelsus) 14 mg PO DAILY Diabetes 01/09/24
metoprolol succinate 25 mg tablet,extended release 24 hr 25 mg PO DAILY #30 tabs 01/13/24
sotalol 80 mg tablet 80 mg PO BID #60 tabs 01/13/24
Home Medication Changes
Toprol and Sotalol added
Pending Results: No
Total time spent discharging patient (in min): 42
--- NOTE | 2024-01-13 11:03 | CM ---
MD entered order for discharge.
He said he was going to drive himself home at [place].
Offered VN he decline need.
PLAN Home no needs
[2024-01-13 11:13] VITALS: BP 132/74
[2024-01-13 11:26] LABS: Glucose - Point of Care 172 mg/dl (70-99)
[2024-01-13 15:15] VITALS: BP 126/69
[2024-01-13 16:34] LABS: Glucose - Point of Care 128 mg/dl (70-99)
[2024-01-13] MEDS: NOVOLOG FLEXPEN-MODERATE RESISTANCE SC (16:38)
--- NOTE | 2024-01-13 16:46 | W.PN.CARDCBS ---
Addendum entered and electronically signed by Moses Jiménez MD 01/13/24 17:40:
I saw and examined the patient.
The Detective Private Eye's note was reviewed and I agree with the note.
Comment:
GEN: No distress, awake, Ox3
HEENT: supple, anicteric, mmm
LUNGS: CTA, no wheezes/rales
CV: Reg, S1/S2, / syst LSB, no gallop
ABD: soft, BS+, NT/ND
EXT: No edema
NEURO: Gross non-focal
SKIN: No rash
Plan:
Remains in sinus rhythm. Doing well. Finished sotalol load. Okay for discharge. QTc 416msec.
Original Note:
Today's Communication / Plan
-
QTc stable at 442 ms this AM and 5th dose of sotalol given at 1600, if QTc stable then he can go
Impression / Plan
-
PCP: Dr. Alfaro
Cardiology: Dr. Gaona, previously followed with [facility]
Impression:
Paroxysmal symptomatic atrial fibrillation status post cardioversion to sinus rhythm 01/11/2024
Recent visit to [facility] for Afib that spontaneously converted to SR with Cardizem gtt approx 12/06/23
Coronary artery disease, moderate nonobstructive by cath at [facility] 08/2023
Hypertension
Hyperlipidemia
Insulin-dependent diabetes
Elevated Troponin
Cough/bronchitis status post COVID August 2023
Echo 01/06/24: EF 55 to 60%, mild AI, mild MR, dilated atrium
Plan:
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
-He is being loaded with sotalol 80 mg BID. QTc stable at 442 ms after 4th dose of sotalol given 01/13/24 AM. 5th dose was given 01/13/24 at 1600 and if QTc is stable on ECG in 2 hours then he can be discharged to home.
-Patient had already made an appt to see Dr. Gaona as a new patient on 02/04/24 and will keep this appt
-Troponin peaked at 0.113 and will be managed as a nonischemic myocardial injury Troponin elevation due to rapid Afib.
HPI: 68-year-old male with past medical history of paroxysmal atrial fibrillation, coronary artery disease, insulin-dependent diabetes, hypertension, and hyperlipidemia presents to [facility] with palpitations, chest discomfort and fatigue.
He is a patient of [facility] cardiology who desires to transfer his care to [place]. He states he has a history of SVT for years and was on Eliquis. Earlier this week he felt chest discomfort and palpitations and went to [facility] for
atrial fibrillation. They placed him on IV Cardizem and he states he converted back into sinus rhythm. His Toprol was stopped and he was sent home on diltiazem 240 mg daily. Yesterday he again was feeling poorly and felt palpitations and chest
discomfort and fatigue. He was found to be in atrial fibrillation with modestly elevated rates. He does get a very mild chest ache at times with the A-fib. He was diagnosed with COVID in August and has had a chronic cough and felt malaise for
months. His cough continues to persist. He denies any orthopnea or PND. He has no syncope. He has no bleeding. He has been compliant with his Eliquis. He has an appoint with Dr. Gaona at the end of the month.
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
Subjective
Date of Service: January 13, 2024
He feels better in SR
Objective
Labs:
01/13/24 04:32
01/13/24 04:32
Labs
Hgb 11.1 g/dL (13.0-18.0) L 01/13/24 04:32
Hct 36.3 % (39.0-52.0) L 01/13/24 04:32
Plt Count 287 10^3/uL (130-400) 01/13/24 04:32
Sodium 139 mmol/L (135-145) 01/13/24 04:32
Potassium 4.1 mmol/L (3.5-5.1) 01/13/24 04:32
BUN 21 mg/dl (9-20) H 01/13/24 04:32
Creatinine 1.1 mg/dL (0.7-1.3) 01/13/24 04:32
Glucose 109 mg/dl (70-99) H 01/13/24 04:32
Vital Signs and I&O:
Vital Signs
Temp Pulse Resp BP Pulse Ox
98.8 F 59 24 126/69 98
01/13/24 15:15 01/13/24 15:15 01/13/24 15:15 01/13/24 16:05 01/13/24 15:15
Vital Signs
Temp Pulse Resp BP Pulse Ox
98.8 F 59 24 126/69 98
01/13/24 15:15 01/13/24 15:15 01/13/24 15:15 01/13/24 16:05 01/13/24 15:15
Intake & Output
01/11/24 01/12/24 01/13/24 01/14/24
06:59 06:59 06:59 06:59
Intake Total 950 / 950 1320 / 1320 760 / 760
Output Total 1200 / 1200
Balance -250 / -250 1320 / 1320 760 / 760
Physical Exam
Physical Exam
GEN: AAOx3
HEENT: mmm
LUNGS: No audible wheeze
CV: SR on tele
ABD:ND
EXT: No edema
NEURO: Gross non-focal
SKIN: No rash
--- NOTE | 2024-01-13 17:21 | PTCARENOTE ---
5th dose of sotolol load given, ECG completed 40 minutes after dose, (per Dr Jiménez do ECG 30 minutes after dose). Copy texted to Dr Jiménez who cleared patient for discharge this evening.
== END 2024-01-13 17:56 | disposition home or self-care (01) | DRG 310 ==
LOC: 4 EAST ACU 20:42
PROVIDERS: Internal Medicine; ADMITTING PHYSICIAN Internal Medicine; ATTENDING PHYSICIAN Internal Medicine; CONSULT PHYSICIAN Internal Medicine Cardiovascular Disease; EMERGENCY PHYSICIAN Emergency Medicine; FAMILY PHYSICIAN Family Medicine
PROC: 5A2204Z Restoration of Cardiac Rhythm, Single (ICD-10-PCS; 2024-01-11)
DX: I48.0 Paroxysmal atrial fibrillation (principal); I10 Essential (primary) hypertension; E78.00 Pure hypercholesterolemia, unspecified; E11.9 Type 2 diabetes mellitus without complications; I25.10 Atherosclerotic heart disease of native coronary artery without angina pectoris; Z79.01 Long term (current) use of anticoagulants
CPT/HCPCS: 71046; 80048; 80053; 82607; 82962; 83036; 83540; 83550; 83735; 84443; 84484; 85025; 85027; 92960; 93005; 94640; 99285

== ENCOUNTER 2024-03-01 20:36 | Emergency (ER) | payer OTHER, SELFPAY ==
[2024-03-01] VITALS (10 sets, daily range): BP systolic 114–148; BP diastolic 70–87; BMI 38.8
[2024-03-01 21:18] LABS: % Basophils 0.4 % (0-2); % Immature Granulocytes 0.2 % (0-0.5); % Lymphocytes 39.1 % (20.5-51.1); % Monocytes 10.3 % (1.7-9.3); Absolute Eosinophils 0.4 10^3/uL (0-0.7); Absolute Lymphocytes 3.7 10^3/uL (1.2-3.4); Absolute Neutrophils 4.3 10^3/uL (1.4-6.5); Hematocrit 33.6 % (39.0-52.0); Hemoglobin 10.4 g/dL (13.0-18.0); Mean Corpuscular Hgb 21.4 pg (27.0-31.0); Mean Corpuscular Volume 69.3 fL (80.0-94.0); Mean Platelet Volume 10.5 fL (7.4-10.4); Nucleated Red Blood Cells % 0 % (-); Platelet Count 299 10^3/uL (130-400); Red Blood Cell Count 4.85 10^6/uL (4.70-6.10); Red Cell Dist. Width 19.1 % (11.5-14.5); White Blood Cell Count 9.4 10^3/uL (4.8-10.8)
[2024-03-01 21:34] LABS: ALT (SGPT) 15 U/L (0-50); AST (SGOT) 23 U/L (17-59); Albumin 4.2 g/dl (3.5-5.0); Alkaline Phosphatase 114 U/L (38-126); Blood Urea Nitrogen 25 mg/dl (9-20); Calcium 10.6 mg/dl (8.4-10.2); Carbon Dioxide 24 mmol/L (22-30); Chloride 106 mmol/L (98-107); Glucose 182 mg/dl (70-99); Potassium 4.6 mmol/L (3.5-5.1); Sodium 140 mmol/L (135-145); Total Bilirubin 0.4 mg/dl (0.2-1.3); Total Protein 6.7 g/dl (6.3-8.2); eGFR > 60.00
[2024-03-01 21:44] LABS: NT-proBNP 310 pg/ml; Troponin I < 0.012 ng/ml
--- NOTE | 2024-03-01 22:14 | ED.GENMED ---
History of Present Illness
General
Chief Complaint: Heart Rate Problem
Source: patient and records
Exam Limitations: none
Time Seen by Provider: 03/01/24 21:59
Nursing documentation reviewed up to this point in time: agreed with
History of Present Illness
History of Present Illness:
Patient is a 68-year-old male presents to the emergency department stating he is in atrial fibrillation which occurred in the past 4 hours after having water ice. Second time is happen after eating water ice. Patient feels a little lightheaded and
has mild shortness of breath with exertion tonight. Patient denies chest pain. Patient is compliant with his Eliquis. Patient denies fever or chills, nasal congestion, sore throat or cough. Patient denies any GI or symptoms. Patient has
otherwise been doing fine.
Past History
Past History
ED Past Medical History: Arrthythmia, CAD, HTN, Hypercholesterolemia and IDDM
Social History
Tobacco: Non-smoker
Alcohol: None
Drug: None
Personal:
Review of Systems
Review of Systems
All Other Systems: ROS reviewed and negative except as documented in HPI and ROS
Constitutional: Reports no symptoms
EENT: Reports no symptoms
Respiratory: Reports trouble breathing (Mildly with exertion)
Cardiac: Reports palpitations; Denies chest pain or diaphoresis
ABD/GI: Reports no symptoms
: Reports no symptoms
Musculoskeletal: Reports no symptoms
Skin: Reports no symptoms
Neurological: Reports no symptoms
Hematologic/Lymphatic: Reports no symptoms
Phy Exam
Physical Exam
Physical Exam:
Physical Exam
General: No apparent distress, alert and appropriate, well nourished, well hydrated
HENT: Normocephalic, supple with no lymphadenopathy, no thyromegaly
Eyes: Clear sclera, conjuctiva without injection
Heart: irregular irregular rhythm and normal rate. No S3, S4. No murmur. No NVD
Lungs: No respiratory distress, no stridor, lung sounds clear and equal bilaterally, chest wall symmetrical and nontender
Abdomen: Soft, nontender, no organomegaly, no CVA tenderness, BS good
Neuro: Alert and oriented x 3, CN II - XII intact, no motor focality, no cerebellar dysfunction
Skin: no rash
Psychiatric: well kept. interactive and cooperative
Extremities: No edema, cyanosis, tenderness
Scores
Heart Failure Risk
Heart Failure Risk Score: Not Applicable
Heart Score for Chest Pain Patients
STEMI patient?: Not applicable
Withdrawal Assessment of Alcohol
Withdrawal Assessment Completed?: Not applicable
Course
Orders/Labs/Results
Orders:
Orders
03/01/24 20:39
Electrocardiogram (*1) Urgent
Reason for Study: Chest Pain
EKG- Treatment ONCE
03/01/24 20:51
Cardiac Monitoring- Treatment ONCE
IV Insert/Care/Rem.- Treatment PRN
CR Chest - 2 Views Urgent
Comment:
Reason For Exam: respiratory distress
O2 Therapy [RESP] Urgent
Titrate/Wean O2 to maintain O2 sat greater than (%): 93
Special Instructions: TO MAINTAIN CONTINUOUS O2 SATS >/= 93%
Pulse Ox/cont/shift [RESP] Urgent
Quantity: 1
Special Instructions: continuous pulse ox
03/01/24 21:06
Complete Blood Count/With Diff Urgent
Comprehensive Metabolic Panel Urgent
NT-proBNP Urgent
Troponin I Urgent
03/01/24 23:01
Propofol [Diprivan] 20 ml .ROUTE .STK-MED
03/01/24 23:27
EKG [Electrocardiogram (*1)] Urgent
Reason for Study: Atrial Fibrillation
Other Reason for Exam: post cardioversion
EKG- Treatment ONCE
Abnormal Lab Results
03/01/24
21:06
Hgb 10.4 L g/dL
(13.0-18.0)
Hct 33.6 L %
(39.0-52.0)
MCV 69.3 L fL
(80.0-94.0)
MCH 21.4 L pg
(27.0-31.0)
MCHC 31.0 L g/dL
(33.0-37.0)
RDW 19.1 H %
(11.5-14.5)
MPV 10.5 H fL
(7.4-10.4)
Absolute Lymphs (auto) 3.7 H 10^3/uL
(1.2-3.4)
Absolute Monos (auto) 1.0 H 10^3/uL
(0.1-0.6)
Monocytes % 10.3 H %
(1.7-9.3)
BUN 25 H mg/dl
(9-20)
Glucose 182 H mg/dl
(70-99)
Calcium 10.6 H mg/dl
(8.4-10.2)
03/01/24 21:06
03/01/24 21:06
Vital Signs
Initial and Last Documented VS:
Initial Vital Signs
Temp Pulse Resp BP Pulse Ox
98.1 F 93 20 119/80 98
03/01/24 20:47 03/01/24 20:47 03/01/24 20:47 03/01/24 20:47 03/01/24 20:47
Last Documented Vital Signs
Temp Pulse Resp BP Pulse Ox
98.3 F 72 17 139/80 95
03/02/24 00:07 03/02/24 00:01 03/02/24 00:01 03/02/24 00:01 03/02/24 00:01
Procedures
Cardioversion
Indication:: Afib
Performed by:: elieenheimer
Synchronized?: Yes
Energy Used: 150 joules
Number of attempts: 1
Successful?: Yes
Complications: none
ASA Risk Score: Class III
Any reaction or bad outcome to prior sedation/anesthesia?: No history of a reaction
Sedation level to be attained: deep
Chart and allergies reviewed: Yes
Patient reassessed prior to sedation: Yes
Time out completed at (validating right patient & procedure): 23:20
History of difficult intubation: No
Airway free of obstruction: Yes
Patient has a gag reflex: Yes
Patient is able to open mouth: Yes
Patient has no dentures: Yes
Patient has no loose teeth: Yes
Medication administered by Provider during Moderate Sedation: IV Propofol (mg)
Total dose administered: 50
Time drug administered: 23:20
Start Time: 23:20
Stop Time: 23:30
*Radiology
Radiology exam reviewed: other (na)
*Pulse Oximetry
Patient hypoxic: no
*EKG
Interpreted by ED Provider?: Yes
EKG Intrepretation Date: 03/01/24
EKG Intrepretation Time: 22:22
Interpretation: abnormal
Comparison EKG: changes noted
Heart Rate: 106
Rate: tachycardiac
Rhythm: a-fib
[place]: left axis deviation
Interval: normal QT interval
QRS Pattern: normal QRS
Ischemia: non-specific ST changes
*Water Meter Mechanic Interpretation
Rate: normal
Interpretation: abnormal
Heart Rate: 80
Rhythm: a-fib
*Critical Care Note
Total Time (30-74mins, 75-104mins- exclusive of procedures): Not Applicable
Update Note
Update Note:
Patient tolerated procedure well. Repeat EKG shows normal sinus rhythm at 70 bpm. Patient will be discharged if no further complications.
ED Attending Note
-
Portions of this chart may have been created with voice recognition software.� Occasional wrong word or��sound alike� substitutions may have occurred due to the inherent limitations of voice recognition software.
Discharge Plan
Departure
Patient Disposition: Home (Routine Discharge)
Date of Disposition: 03/01/24
Time of Disposition: 23:32
Patient with high blood pressure during this ER visit?: No
Condition: Good
Covid-19: Not Applicable
Discharge Problem:
Atrial fibrillation with rapid ventricular response, Encounter for cardioversion procedure
Instructions: Atrial Fibrillation (DC), Cardioversion (DC), MODERATE SEDATION ADULT
Prescriptions:
No Action
losartan 50 mg tablet
50 mg PO DAILY
diltiazem HCl 240 mg capsule,extended release 24hr
240 mg PO DAILY
pantoprazole 40 mg tablet,delayed release (DR/EC)
40 mg PO DAILY
febuxostat 40 mg tablet
40 mg PO DAILY
Eliquis 5 mg tablet
5 mg PO BID
Rybelsus 14 mg tablet
14 mg PO DAILY
Trijardy XR 12.5-2.5-1,000 mg tablet, IR - ER, biphasic 24hr
1 tab PO BIDWMEAL
Lyumjev KwikPen U-100 Insulin 100 unit/mL insulin pen
5 unit SC AC
atorvastatin 40 mg tablet
40 mg PO HS
insulin glargine U-300 conc [Toujeo Max U-300 SoloStar] 300 unit/mL (3 mL) insulin pen
10 unit SC DAILY
Trelegy Ellipta
1 puff inhalation R DAILY
sotalol 80 mg Tablet
80 mg PO BID Qty: 60 0RF
metoprolol succinate 25 mg Tablet Extended Release 24 Hr
25 mg PO DAILY Qty: 30 0RF
levalbuterol HCl 1.25 mg/3 mL Solution For Nebulization
1.25 mg inhalation R Q6HPRN PRN (Reason: sob/wheezing) Qty: 75 0RF
Referrals:
Natalio Alfaro MD [Family Provider] - Follow up in 2-3 days
Activity Restrictions/Additional Instructions:
Continue present medications and therapy
Interventions
Interventions:
*Risk Screen - Suicide Last Done: 03/01/24 20:47
*General Assessment Last Done: 03/01/24 20:47
*Neglect/Abuse Screening Last Done: 03/01/24 20:47
ED- Fall Risk Assessment Last Done: 03/01/24 20:47
*ED COVID-19 Vaccine History Last Done: 03/01/24 20:47
*Nursing Disposition Last Done: 03/02/24 00:14
ED- Cardiac Assessment Last Done: 03/01/24 21:51
ED- Pulmonary Assessment Last Done: 03/01/24 21:51
Discharge Date and Time
Discharge Date/Time: 03/02/24 00:16
Print Language: MALAY
[2024-03-02] VITALS: BP 139/80
[2024-03-02 00:01] VITALS: BP 139/80
== END 2024-03-02 00:16 | disposition home or self-care (01) ==
LOC: EMR 20:36
PROVIDERS: EMERGENCY PHYSICIAN Emergency Medicine; FAMILY PHYSICIAN Family Medicine
DX: I48.91 Unspecified atrial fibrillation (principal); I25.10 Atherosclerotic heart disease of native coronary artery without angina pectoris; I10 Essential (primary) hypertension; E78.00 Pure hypercholesterolemia, unspecified; E11.9 Type 2 diabetes mellitus without complications; Z79.01 Long term (current) use of anticoagulants
CPT/HCPCS: 99284; 92960; 71046; 80053; 83880; 84484; 85025; 93005; 99283

== ENCOUNTER 2024-03-27 17:46 | Emergency (ER) | payer OTHER, SELFPAY ==
[2024-03-27] VITALS (16 sets, daily range): BP systolic 121–171; BP diastolic 74–102; BMI 38.4
[2024-03-27 18:11] LABS: % Basophils 0.5 % (0-2); % Eosinophils 4.2 % (0-6); % Immature Granulocytes 0.3 % (0-0.5); % Lymphocytes 33.3 % (20.5-51.1); % Monocytes 7.9 % (1.7-9.3); % Neutrophils 53.8 % (42.2-75.2); Absolute Basophils 0.1 10^3/uL (0-0.2); Absolute Eosinophils 0.4 10^3/uL (0-0.7); Absolute Lymphocytes 3.2 10^3/uL (1.2-3.4); Absolute Monocytes 0.8 10^3/uL (0.1-0.6); Absolute Neutrophils 5.2 10^3/uL (1.4-6.5); Hematocrit 34.7 % (39.0-52.0); Hemoglobin 10.7 g/dL (13.0-18.0); Mean Corp Hgb Conc. 30.8 g/dL (33.0-37.0); Mean Corpuscular Hgb 21.1 pg (27.0-31.0); Mean Corpuscular Volume 68.4 fL (80.0-94.0); Mean Platelet Volume 10.2 fL (7.4-10.4); Nucleated Red Blood Cells % 0 % (-); Platelet Count 306 10^3/uL (130-400); Red Blood Cell Count 5.07 10^6/uL (4.70-6.10); White Blood Cell Count 9.7 10^3/uL (4.8-10.8)
[2024-03-27 18:26] LABS: ALT (SGPT) 17 U/L (0-50); AST (SGOT) 25 U/L (17-59); Albumin 4.2 g/dl (3.5-5.0); Alkaline Phosphatase 91 U/L (38-126); Blood Urea Nitrogen 23 mg/dl (9-20); Calcium 10.6 mg/dl (8.4-10.2); Carbon Dioxide 25 mmol/L (22-30); Chloride 105 mmol/L (98-107); Glucose 159 mg/dl (70-99); Potassium 4.2 mmol/L (3.5-5.1); Sodium 138 mmol/L (135-145); Total Bilirubin 0.3 mg/dl (0.2-1.3); Total Protein 6.7 g/dl (6.3-8.2); eGFR > 60.00
[2024-03-27] MEDS: CARDIZEM 125 IV (20:26)
[2024-03-27] MEDS: CARDIZEM 10 MG IV (20:27)
--- NOTE | 2024-03-27 20:57 | ED.GENMED ---
History of Present Illness
General
Chief Complaint: Heart Rate Problem
Source: patient
Exam Limitations: none
Time Seen by Provider: 03/27/24 19:35
Nursing documentation reviewed up to this point in time: agreed with
History of Present Illness
History of Present Illness:
Patient with history of paroxysmal atrial fibrillation on Eliquis, presents to ED secondary to recurrent 'fluttering' sensation in his chest this morning along with lightheadedness during exertion. Patient was seen in ED for similar complaint 2
weeks ago, requiring cardioversion. Denies chest pain. Denies shortness of breath. Denies nausea or vomiting. Denies recent illness. Denies recent change in medications diet. Patient has taken Eliquis, including this evening. Patient is
scheduled to see Dr. White, process description writer next month.
Past History
Past History
ED Past Medical History: Arrthythmia, CAD, HTN, Hypercholesterolemia and IDDM
Social History
Tobacco: Non-smoker
Alcohol: None
Drug: None
Personal:
Review of Systems
Review of Systems
Allergies reviewed?: Yes
All Other Systems: ROS reviewed and negative except as documented in HPI and ROS
Constitutional: Reports no symptoms
EENT: Reports no symptoms
Respiratory: Reports no symptoms
Cardiac: Reports palpitations
ABD/GI: Reports no symptoms
Musculoskeletal: Reports no symptoms
Skin: Reports no symptoms
Neurological: Reports dizzy
Phy Exam
Physical Exam
Physical Exam:
Physical Exam
General: no apparent distress, not acutely ill. afebrile
Head: nc/at. eomi
Neck: supple. no meningeal signs.
Heart: irregularly irregular, no murmur. equal radial pulses.
Lungs: no acute respiratory distress. clear bilaterally
Abdomen: normal bowel sounds. not tender.
Neuro: alert and oriented. no focal neurological deficits
Skin: no rash
Psychiatric: well kept. interactive and cooperative
Extremities: no edema. no calf tenderness
Course
Orders/Labs/Results
Orders:
Orders
03/27/24 17:51
EKG [Electrocardiogram (*1)] Urgent
Reason for Study: Atrial Fibrillation
EKG- Treatment ONCE
03/27/24 18:03
CBC/With Diff [Complete Blood Count/With Diff] Urgent
CMP [Comprehensive Metabolic Panel] Urgent
03/27/24 20:02
Diltiazem HCl [Cardizem] 10 mg IV NOW STA
03/27/24 20:15
Diltiazem 125 mg/125 ml Nss [Cardizem] 125 mg in 125 ml IV PER PROTOCOL
Initial dose in mg/hr, then titrate:: 5
Titrate to keep:: Heart rate 80-100 bpm
Titrate by mg/hr:: 5 mg/hr
Frequency of titrations (minutes):: 15
Maximum dose in mg/hr:: 15
03/27/24 22:03
Propofol [Diprivan] 20 ml .ROUTE .STK-MED
Abnormal Lab Results
03/27/24
18:03
Hgb 10.7 L g/dL
(13.0-18.0)
Hct 34.7 L %
(39.0-52.0)
MCV 68.4 L fL
(80.0-94.0)
MCH 21.1 L pg
(27.0-31.0)
MCHC 30.8 L g/dL
(33.0-37.0)
RDW 18.0 H %
(11.5-14.5)
Absolute Monos (auto) 0.8 H 10^3/uL
(0.1-0.6)
BUN 23 H mg/dl
(9-20)
Glucose 159 H mg/dl
(70-99)
Calcium 10.6 H mg/dl
(8.4-10.2)
03/27/24 18:03
03/27/24 18:03
Vital Signs
Initial and Last Documented VS:
Initial Vital Signs
Temp Pulse Resp BP Pulse Ox
98.1 F 91 18 143/85 98
03/27/24 17:49 03/27/24 17:49 03/27/24 17:49 03/27/24 17:49 03/27/24 17:49
Last Documented Vital Signs
Temp Pulse Resp BP Pulse Ox
97.7 F 76 16 131/72 98
03/28/24 00:13 03/28/24 00:15 03/28/24 00:15 03/28/24 00:00 03/28/24 00:15
Procedures
Moderate Sedation
ASA Risk Score: Class I
Chart and allergies reviewed: Yes
Consent for anesthesia obtained: Yes
Time out completed (validating right patient & procedure): Yes
Moderate Sedation Start Time(when first medication is given): 22:39
History of difficult intubation: No
Airway free of obstruction: Yes
Patient has a gag reflex: Yes
Patient is able to open mouth: Yes
Patient has no dentures: Yes
Patient has no loose teeth: Yes
Medication administered by Provider during Moderate Sedation: IV Propofol (mg)
Total dose administered: 40
Time drug administered: 22:39
Moderate Sedation Procedure End Time: 22:49
Cardioversion
Indication:: Afib
Performed by:: Bradley eFnton M.D.
Synchronized?: Yes
Energy Used: 200 joules
Number of attempts: 1
Successful?: Yes
Complications: None
ASA Risk Score: Class I
Any reaction or bad outcome to prior sedation/anesthesia?: No history of a reaction
Sedation level to be attained: moderate
Chart and allergies reviewed: Yes
Patient reassessed prior to sedation: Yes
Time out completed at (validating right patient & procedure): 22:39
History of difficult intubation: No
Airway free of obstruction: Yes
Patient has a gag reflex: Yes
Patient is able to open mouth: Yes
Patient has no dentures: Yes
Patient has no loose teeth: Yes
Medication administered by Provider during Moderate Sedation: IV Propofol (mg)
Total dose administered: 40
Time drug administered: 22:39
Start Time: 22:39
Stop Time: 22:49
MDM/Problems Addressed
MDM/Problems Addressed:
History and exam, along with EKG, consistent with symptomatic rapid atrial fibrillation. Patient evaluated immediately and started on IV fluids along with Cardizem infusion. Unfortunately, patient remains in atrial fibrillation rhythm. As such,
decision made to proceed with cardioversion.
Procedure consent on the chart.
Cardioversion successful after 1 attempt, confirmed via repeat EKG.
Pt will be discharged home in stable condition, with recommendation to follow up with his net web application developer for re-evaluation.
Critical care statement: A total of 40 minutes of critical care time was provided for this patient. This includes management of unstable vital signs, evaluation of the patient at bedside, reviewing the patient's pertinent medical records, review of
old EKGs and review of pertinent medical records. This time with separate from time utilized to perform the aforementioned documented procedures
*EKG
Interpreted by ED Provider?: Yes
EKG Intrepretation Date: 03/27/24
Heart Rate: 104
Rate: tachycardiac
Rhythm: a-fib
[place]: normal axis
Interval: normal interval
*Critical Care Note
Total Time (30-74mins, 75-104mins- exclusive of procedures): 40 min
ED Attending Note
-
Portions of this chart may have been created with voice recognition software.� Occasional wrong word or��sound alike� substitutions may have occurred due to the inherent limitations of voice recognition software.
Discharge Plan
Departure
Patient Disposition: Home (Routine Discharge)
Date of Disposition: 03/27/24
Time of Disposition: 23:37
Patient with high blood pressure during this ER visit?: Yes
Condition: Good
Discharge Problem:
Atrial fibrillation, rapid
Instructions: Atrial Fibrillation (DC)
Prescriptions:
No Action
losartan 50 mg tablet
50 mg PO DAILY
diltiazem HCl 240 mg capsule,extended release 24hr
240 mg PO DAILY
pantoprazole 40 mg tablet,delayed release (DR/EC)
40 mg PO DAILY
febuxostat 40 mg tablet
40 mg PO DAILY
Eliquis 5 mg tablet
5 mg PO BID
Rybelsus 14 mg tablet
14 mg PO DAILY
Trijardy XR 12.5-2.5-1,000 mg tablet, IR - ER, biphasic 24hr
1 tab PO BIDWMEAL
Lyumjev KwikPen U-100 Insulin 100 unit/mL insulin pen
5 unit SC AC
atorvastatin 40 mg tablet
40 mg PO HS
insulin glargine U-300 conc [Toujeo Max U-300 SoloStar] 300 unit/mL (3 mL) insulin pen
10 unit SC DAILY
Trelegy Ellipta
1 puff inhalation R DAILY
sotalol 80 mg Tablet
80 mg PO BID Qty: 60 0RF
metoprolol succinate 25 mg Tablet Extended Release 24 Hr
25 mg PO DAILY Qty: 30 0RF
levalbuterol HCl 1.25 mg/3 mL Solution For Nebulization
1.25 mg inhalation R Q6HPRN PRN (Reason: sob/wheezing) Qty: 75 0RF
Referrals:
Danny White MD [Active] -
Natalio Alfaro MD [Family Provider] -
Activity Restrictions/Additional Instructions:
As discussed, please follow-up with your net web application developer for further evaluation and treatment.
Interventions
Interventions:
*Risk Screen - Suicide Last Done: 03/27/24 19:45
*General Assessment Last Done: 03/27/24 19:45
*Neglect/Abuse Screening Last Done: 03/27/24 19:45
ED- Fall Risk Assessment Last Done: 03/27/24 19:47
*ED COVID-19 Vaccine History Last Done: 03/27/24 19:45
*Nursing Disposition Last Done: 03/28/24 00:15
ED- Cardiac Assessment Last Done: 03/27/24 19:47
ED- Pulmonary Assessment Last Done: 03/27/24 19:47
Discharge Date and Time
Discharge Date/Time: 03/28/24 00:15
Print Language: ESTONIAN
[2024-03-28] VITALS: BP 131/72
== END 2024-03-28 00:15 | disposition home or self-care (01) ==
LOC: EMR 17:46
PROVIDERS: Emergency Medicine; EMERGENCY PHYSICIAN Emergency Medicine; FAMILY PHYSICIAN Family Medicine
DX: I48.0 Paroxysmal atrial fibrillation (principal); R42 Dizziness and giddiness; I10 Essential (primary) hypertension; E78.00 Pure hypercholesterolemia, unspecified; E11.9 Type 2 diabetes mellitus without complications; I25.10 Atherosclerotic heart disease of native coronary artery without angina pectoris; G47.30 Sleep apnea, unspecified; K22.70 Barrett's esophagus without dysplasia; Z79.01 Long term (current) use of anticoagulants; Z86.16 Personal history of COVID-19; Z88.6 Allergy status to analgesic agent; Z88.8 Allergy status to other drugs, medicaments and biological substances; Z98.84 Bariatric surgery status
CPT/HCPCS: 99291; 92960; 99152; 96365; 96366 ×3; 80053; 85025; 93005

== ENCOUNTER 2024-04-02 13:08 | Emergency (ER) | payer OTHER, SELFPAY ==
[2024-04-02] VITALS (23 sets, daily range): BP systolic 101–128; BP diastolic 67–86; BMI 38.8
--- NOTE | 2024-04-02 15:37 | ED.GENMED ---
History of Present Illness
General
Chief Complaint: Heart Rate Problem
Time Seen by Provider: 04/02/24 14:23
History of Present Illness
History of Present Illness:
68-year-old male with history of A-fib on Eliquis and diltiazem presenting to the emergency department for concern of A-fib. Reports that he felt himself going to A-fib this morning. Notes that every time he walks, he feels short of breath. He
denies chest pain. He reports compliance with his medications. He presents to the emergency department for cardioversion. Notes that he was cardioverted 1 week ago for the same issue. He has a follow-up appointment with his constitutional law professor
on April 13. Denies additional acute medical complaints.
Past History
Past History
ED Past Medical History: Arrthythmia, CAD, HTN, Hypercholesterolemia and IDDM
Social History
Tobacco: Non-smoker
Alcohol: None
Drug: None
Personal:
Phy Exam
Physical Exam
Physical Exam:
General: Well-appearing, no clinical signs of dehydration, nontoxic and in no acute distress
HEENT: protecting airway
Neck: appears supple
CV: Normal heart rate, irregularly irregular rhythm
Resp: No accessory muscle use, no increased work of breathing, lungs clear to auscultation bilaterally
Abd: Soft and non-distended, no tenderness to palpation
Extremities: No deformities, no swelling, no erythema
Neuro: alert, no focal neurologic deficit
: deferred
Rectal: deferred
Psych: Normal affect
Skin: Intact
Course
Orders/Labs/Results
Orders:
Orders
04/02/24 13:10
Electrocardiogram (*1) Urgent
Reason for Study: Chest Pain
EKG- Treatment ONCE
04/02/24 13:13
Electrocardiogram (*1) Urgent
Reason for Study: Atrial Fibrillation
EKG- Treatment ONCE
04/02/24 15:17
0.9% Sodium Chloride 1000 ml [Nss] 1,000 ml IV BOLUS
04/02/24 15:36
Complete Blood Count/With Diff Urgent
Comprehensive Metabolic Panel Urgent
Prothrombin Time Urgent
04/02/24 15:40
Electrocardiogram (*1) Urgent
Reason for Study: Palpitations
EKG- Treatment ONCE
04/02/24 15:41
Propofol [Diprivan] 20 ml .ROUTE .STK-MED
04/02/24 16:27
Electrocardiogram (*1) Urgent
EKG- Treatment ONCE
Abnormal Lab Results
04/02/24
15:36
Hgb 10.8 L g/dL
(13.0-18.0)
Hct 36.1 L %
(39.0-52.0)
MCV 70.9 L fL
(80.0-94.0)
MCH 21.2 L pg
(27.0-31.0)
MCHC 29.9 L g/dL
(33.0-37.0)
RDW 17.6 H %
(11.5-14.5)
MPV 10.8 H fL
(7.4-10.4)
Abs Immat Gran (auto) 0.1 H 10^3/uL
(0-0.05)
Absolute Monos (auto) 0.9 H 10^3/uL
(0.1-0.6)
Immature Gran % 0.6 H %
(0-0.5)
Monocytes % 10.0 H %
(1.7-9.3)
PT 15.0 H Sec
(11.4-14.6)
BUN 21 H mg/dl
(9-20)
Glucose 121 H mg/dl
(70-99)
Calcium 10.4 H mg/dl
(8.4-10.2)
04/02/24 15:36
04/02/24 15:36
Vital Signs
Initial and Last Documented VS:
Initial Vital Signs
Temp Pulse Resp BP Pulse Ox
98.2 F 83 20 113/75 98
04/02/24 13:13 04/02/24 13:13 04/02/24 13:13 04/02/24 13:13 04/02/24 13:13
Last Documented Vital Signs
Temp Pulse Resp BP Pulse Ox
97.8 F 59 17 104/67 100
04/02/24 15:58 04/02/24 16:29 04/02/24 16:29 04/02/24 16:29 04/02/24 16:29
Procedures
Cardioversion
Indication:: Afib
Performed by:: Sahara Cardozo DO
Synchronized?: Yes
Energy Used: 200 joules
Number of attempts: 1
Successful?: Yes
Complications: none
ASA Risk Score: Class II
Any reaction or bad outcome to prior sedation/anesthesia?: No history of a reaction
Sedation level to be attained: moderate
Chart and allergies reviewed: Yes
Patient reassessed prior to sedation: No
Time out completed at (validating right patient & procedure): 16:19
History of difficult intubation: No
Airway free of obstruction: Yes
Patient has a gag reflex: Yes
Patient is able to open mouth: Yes
Patient has no dentures: Yes
Patient has no loose teeth: Yes
Medication administered by Provider during Moderate Sedation: IV Propofol (mg)
Total dose administered: 80
Time drug administered: 16:20
Start Time: 16:20
Stop Time: 16:40
MDM/Problems Addressed
MDM/Problems Addressed:
68-year-old male with history of A-fib on Eliquis presenting for concern of A-fib. Vital signs are normal, rate controlled.
Patient is resting comfortably, no acute distress. EKG obtained on arrival, A-fib without RVR, rate controlled. Patient is requesting to be cardioverted. Explained to patient that this is not an procedure given rate can dynamic stability.
Patient reports he feels short of breath with exertion because of the A-fib and would like to be cardioverted. He was cardioverted a week ago, so explained that we can cardiovert him, however may go back into A-fib after procedure. Patient
understands. Will screen with laboratory analysis and can procedure. Patient otherwise denies any missed doses of his Eliquis. Plan for discharge with outpatient EP follow-up.
*Critical Care Note
Total Time (30-74mins, 75-104mins- exclusive of procedures): Not Applicable
ED Attending Note
-
Portions of this chart may have been created with voice recognition software.� Occasional wrong word or��sound alike� substitutions may have occurred due to the inherent limitations of voice recognition software.
Discharge Plan
Departure
Patient with high blood pressure during this ER visit?: No
Condition: Good
Discharge Problem:
Encounter for cardioversion procedure, Atrial fibrillation
Instructions: Atrial Fibrillation (DC), Cardioversion (DC)
Prescriptions:
No Action
losartan 50 mg tablet
50 mg PO DAILY
diltiazem HCl 240 mg capsule,extended release 24hr
240 mg PO DAILY
pantoprazole 40 mg tablet,delayed release (DR/EC)
40 mg PO DAILY
febuxostat 40 mg tablet
40 mg PO DAILY
Eliquis 5 mg tablet
5 mg PO BID
Rybelsus 14 mg tablet
14 mg PO DAILY
Trijardy XR 12.5-2.5-1,000 mg tablet, IR - ER, biphasic 24hr
1 tab PO BIDWMEAL
Lyumjev KwikPen U-100 Insulin 100 unit/mL insulin pen
5 unit SC AC
atorvastatin 40 mg tablet
40 mg PO HS
insulin glargine U-300 conc [Toujeo Max U-300 SoloStar] 300 unit/mL (3 mL) insulin pen
10 unit SC DAILY
Trelegy Ellipta
1 puff inhalation R DAILY
sotalol 80 mg Tablet
80 mg PO BID Qty: 60 0RF
metoprolol succinate 25 mg Tablet Extended Release 24 Hr
25 mg PO DAILY Qty: 30 0RF
levalbuterol HCl 1.25 mg/3 mL Solution For Nebulization
1.25 mg inhalation R Q6HPRN PRN (Reason: sob/wheezing) Qty: 75 0RF
Referrals:
Natalio Alfaro MD [Family Provider] -
Activity Restrictions/Additional Instructions:
You were seen in the emergency department for cardioversion for your atrial fibrillation
You were cardioverted successfully with return to sinus rhythm.
Please follow-up closely with your program aide
Return to the emergency department for any worsening of your symptoms, or any development of chest pain, difficulty breathing, abdominal pain with persistent vomiting and inability to tolerate food or liquid by mouth (concern for dehydration),
weakness, headache or confusion, fever greater than 100.4, or any additional symptoms that are concerning to you.
Thank you for choosing [facility].
Interventions
Interventions:
*Risk Screen - Suicide Last Done: 04/02/24 14:39
*General Assessment Last Done: 04/02/24 14:39
*Neglect/Abuse Screening Last Done: 04/02/24 14:39
ED- Fall Risk Assessment Last Done: 04/02/24 14:39
*ED COVID-19 Vaccine History Last Done: 04/02/24 14:39
ED- Cardiac Assessment Last Done: 04/02/24 15:09
ED- Pulmonary Assessment Last Done: 04/02/24 15:09
Discharge Date and Time
Print Language: GABONESE
[2024-04-02 15:50] LABS: % Basophils 0.6 % (0-2); % Eosinophils 3.9 % (0-6); % Immature Granulocytes 0.6 % (0-0.5); % Lymphocytes 28.5 % (20.5-51.1); % Neutrophils 56.4 % (42.2-75.2); Absolute Basophils 0.1 10^3/uL (0-0.2); Absolute Eosinophils 0.4 10^3/uL (0-0.7); Absolute Immature Granulocytes 0.1 10^3/uL (0-0.05); Absolute Lymphocytes 2.6 10^3/uL (1.2-3.4); Absolute Monocytes 0.9 10^3/uL (0.1-0.6); Absolute Neutrophils 5.1 10^3/uL (1.4-6.5); Hematocrit 36.1 % (39.0-52.0); Hemoglobin 10.8 g/dL (13.0-18.0); Mean Corp Hgb Conc. 29.9 g/dL (33.0-37.0); Mean Corpuscular Hgb 21.2 pg (27.0-31.0); Mean Corpuscular Volume 70.9 fL (80.0-94.0); Mean Platelet Volume 10.8 fL (7.4-10.4); Nucleated Red Blood Cells % 0 % (-); Platelet Count 305 10^3/uL (130-400); Red Blood Cell Count 5.09 10^6/uL (4.70-6.10); Red Cell Dist. Width 17.6 % (11.5-14.5)
[2024-04-02] MEDS: NSS 1000 IV (15:57)
[2024-04-02 16:04] LABS: ALT (SGPT) 15 U/L (0-50); AST (SGOT) 22 U/L (17-59); Albumin 4.1 g/dl (3.5-5.0); Alkaline Phosphatase 86 U/L (38-126); Blood Urea Nitrogen 21 mg/dl (9-20); Calcium 10.4 mg/dl (8.4-10.2); Carbon Dioxide 24 mmol/L (22-30); Chloride 106 mmol/L (98-107); Estimated Creatinine Clearance 73 ml/min; Glucose 121 mg/dl (70-99); Potassium 4.5 mmol/L (3.5-5.1); Sodium 142 mmol/L (135-145); Total Bilirubin 0.4 mg/dl (0.2-1.3); Total Protein 6.4 g/dl (6.3-8.2); eGFR > 60.00
== END 2024-04-02 18:00 | disposition home or self-care (01) ==
LOC: EMR 13:08
PROVIDERS: EMERGENCY PHYSICIAN Student in an Organized Health Care Education/Training Program; FAMILY PHYSICIAN Family Medicine
DX: I48.91 Unspecified atrial fibrillation (principal); R06.02 Shortness of breath; I25.10 Atherosclerotic heart disease of native coronary artery without angina pectoris; E11.9 Type 2 diabetes mellitus without complications; E78.00 Pure hypercholesterolemia, unspecified; I10 Essential (primary) hypertension; Z79.01 Long term (current) use of anticoagulants; Z79.4 Long term (current) use of insulin; Z88.6 Allergy status to analgesic agent; Z88.8 Allergy status to other drugs, medicaments and biological substances
CPT/HCPCS: 92960; 99285; 96360; 99152; 80053; 85025; 85610; 93005

== ENCOUNTER 2024-06-22 07:58 | Day surgery (SDC) | payer OTHER, SELFPAY ==
[2024-06-06 09:40] LABS: INR 1.04; PT 13.4 Sec (11.4-14.6)
[2024-06-06 09:59] LABS: % Basophils 0.5 % (0-2); % Eosinophils 3.3 % (0-6); % Immature Granulocytes 0.4 % (0-0.5); % Lymphocytes 27.5 % (20.5-51.1); % Monocytes 8.3 % (1.7-9.3); Absolute Eosinophils 0.2 10^3/uL (0-0.7); Absolute Monocytes 0.6 10^3/uL (0.1-0.6); Absolute Neutrophils 4.4 10^3/uL (1.4-6.5); Hematocrit 39.3 % (39.0-52.0); Hemoglobin 11.6 g/dL (13.0-18.0); Mean Corp Hgb Conc. 29.5 g/dL (33.0-37.0); Mean Corpuscular Hgb 20.9 pg (27.0-31.0); Mean Corpuscular Volume 70.8 fL (80.0-94.0); Mean Platelet Volume 10.5 fL (7.4-10.4); Nucleated Red Blood Cells % 0 % (-); Platelet Count 358 10^3/uL (130-400); Red Blood Cell Count 5.55 10^6/uL (4.70-6.10); Red Cell Dist. Width 23.3 % (11.5-14.5); White Blood Cell Count 7.4 10^3/uL (4.8-10.8)
[2024-06-06 10:09] LABS: ALT (SGPT) 20 U/L (0-50); AST (SGOT) 24 U/L (17-59); Albumin 4.6 g/dl (3.5-5.0); Alkaline Phosphatase 73 U/L (38-126); Blood Urea Nitrogen 19 mg/dl (9-20); Calcium 10.7 mg/dl (8.4-10.2); Carbon Dioxide 27 mmol/L (22-30); Chloride 104 mmol/L (98-107); Glucose 119 mg/dl (70-99); Potassium 4.6 mmol/L (3.5-5.1); Sodium 145 mmol/L (135-145); Total Bilirubin 0.3 mg/dl (0.2-1.3); eGFR > 60.00
[2024-06-06 11:06] LABS: Anisocytosis 1+; Hypochromasia 1+; Normal RBC Morphology No; Ovalocytes 2+; Polychromasia 1+
[2024-06-06 13:50] VITALS: BMI 38.4
--- NOTE | 2024-06-07 13:56 | W.PN.UPDATE ---
Update Note
Progress Note Update
Scattered small bilateral pulmonary nodules. Recommend follow-up CT chest in 12 months. The [facility] Pulmonary Nodule Advisory Board will be notified.
--faxed to PCP
--- NOTE | 2024-06-13 10:09 | OID.L.PAT ---
Pulmonary Nodule Pat Letter
- -
06/13/24
CHARLES HUSSEIN
[address]
[place], [place]
Mayuri SOTO,
A pulmonary nodule was seen on an imaging study done by [facility]iology. This was reviewed by the [facility] Pulmonary Nodule Advisory Board and the following recommendation was made:
Recommendation: Follow up CT Chest in 6 months
If you have any questions, please do not hesitate to contact your primary care physician. If you are in need of a Physician, you can go to [email or web address] and click on 'Find a Provider'. Type 'Family Medicine' in the search.
Oncology Nurse Navigator
[facility]
[phone]
--- NOTE | 2024-06-13 10:10 | OID.L.REC ---
Pulmonary Nodule Follow Up
- Recommendation
06/13/24
Pulmonary Nodule Review Recommendations
Your patient, CHARLES HUSSEIN, had a pulmonary nodule seen on an imaging study done on 06/06/24 in the [facility] Radiology Department.
This was reviewed by the [facility] Pulmonary Nodule Advisory Board and the following recommendation was made:
Recommendation: Follow up CT Chest in 6 months
If you have any questions please do not hesitate to contact us.
Sincerely,
Oncology Nurse Navigator
[facility]
[phone]
[2024-06-22] VITALS (16 sets, daily range): BP systolic 130–172; BP diastolic 83–105; BMI 38.3
[2024-06-22 09:01] LABS: Glucose - Point of Care 127 mg/dl (70-99)
[2024-06-22 11:30] LABS: ACT-LR - POC 281 Seconds (116-155)
[2024-06-22 11:39] LABS: Glucose - Point of Care 119 mg/dl (70-99)
[2024-06-22 11:45] LABS: ACT-LR - POC 256 Seconds (116-155)
[2024-06-22 12:05] LABS: ACT-LR - POC 255 Seconds (116-155)
--- NOTE | 2024-06-22 12:19 | ITS.CL.ABL ---
Rv Service Technician - Ablation
Ablation
Procedure Report:
ELECTROPHYSIOLOGY ABLATION STUDY
�
DATE:: June 22, 2024�����������������������������REFERRING: Dr. Kai Andrade
�
INDICATION: Paroxysmal supraventricular tachycardia in the form of atrial fibrillation.��Prior history of Valsalva dependent supraventricular arrhythmia as well
�
HISTORY: See H and P.��Prior history of SVT which degenerated into atrial fibrillation and more recently this year atrial fibrillation only requiring sotalol loading and cardioversion.
�
ANTIARRHYTHMIC DRUG: Sotalol 80 mg daily in addition to diltiazem
�
PRE-PROCEDURE EMILY: No interatrial thrombus
�
PRESENTING RHYTHM: Sinus rhythm
�
'TIME-OUT':��called and confirmed.
�
SEDATION/ANESTHESIA:��provided via the anesthesia department using general anesthesia (LMA).
�
INTRAVENOUS/ARTERIAL ACCESS:
Right femoral venous -10 Faroese
Left femoral venous - 8 Fr, 6 Fr
Vascade closure was utilized with the Vascade XL to the right femoral vein and standard Vascade closure to the left femoral vein access sites.
Ultrasound guidance for bilateral femoral vein access was utilized by me to obtain access with demonstration of normal anatomy
CHADS-VASC Score:
�
HAS-Bled Score
�
PROCEDURE:
1.��A decapolar CS catheter was placed within the CS for mapping and pacing.��This was also used as the reference catheter for the 3-D map.
�
2. The intracardiac ultrasound catheter was positioned in the RA to identify the FO for targeting of transseptal puncture, assist��in identification of the pulmonary vein ostia, monitoring pre and post ablation pulmonary vein flow velocities,
monitoring for 'bubble' formation during RF application as a sign of thermal injury,��and to monitor for pericardial effusion during mapping and ablation procedure.���Left atrial size, LV ejection fraction, and pulmonary vein flows were monitored
pre and post ablation procedure. The other valves were inspected and found to be free of significant regurgitation or stenosis.
�
3.��Half of the calculated heparin bolus was administered prior to the first transeptal puncture.��Transseptal puncture was performed to diagnose RA and LA pressure so that safety of LA mapping and ablation could be further assessed, and to access
the left atrium and pulmonary veins for mapping and ablation.��This entailed advancing an 18 Faroese sheath�RF wire with dilator into the superior vena cava and withdrawing both (monitoring intracardiac ultrasound, fluoroscopy and tip pressure) with
the tip oriented toward the atrial septum.��The fossa ovalis was engaged (indicated by sudden displacement of the sheath tip as well as tenting of the fossa seen on intracardiac ultrasound).��Left atrial access required a pass with the [employer]
needle extended.��Left atrial catheter position was confirmed by pressure monitoring (RA mean pressure 8 mm Hg and LA mean presure 14 mm Hg), LA saturation (99%),��as well as fluoroscopy.��The sheath was advanced over the dilator and positioned in
the left atrium.���The remainder of the calculated heparin bolus was administered and heparin was
infused to maintain ACT at 300 -350 seconds throughout the case.
�
4.��RA pacing was performed via the proximal decapolar poles and LA pacing was performed via the distal decapolr poles.
�
5. A quadrapolar catheter was first positioned at the His position for His Bundle recording which was tagged via the 3-D Navex sytem, and then passed to the RVA for RV pacing and recording.
�
6. The multipolar catheter and PFA catheter were placed in each of the LIPV, LSPV, RSPV and the RIPV.��
�
7.��Next, a 3-D map was created using Navex.���A 3-D reconstructed CT image was compared to the 3-D Navex map to assist in anatomic interpretation, mapping and ablation.��The CT image and the NavX image were fused.
�
8. Nonsustained atrial tachycardias were seen from the right superior pulmonary vein and the luke of the right inferior pulmonary vein. We performed EP study prior to ablation from the right atrium and the left atrium looking for other inducible
supraventricular arrhythmias given the patient's prior history of SVT in 2015. Beyond the nonsustained pulmonary vein atrial tachycardia is noted he was noninducible for other supraventricular tachycardia and had normal sinus node and AV sugar
physiology. There was no evidence of jump or echo beats. We then performed 52 lesions isolating the left common ostium and the right pulmonary veins in all of basket poses with flower poses given to the posterior wall just outside the common
ostium and the anterior ridge, posterior wall outside the left superior pulmonary vein, and below the left common ostium at the posterior floor. Entrance and exit block was confirmed in all 4 pulmonary veins.
�
9. Normal sinus node and AV node physiology noted.
�
TOTAL FLOURO TIME: 15.6 minutes 156 mGy
�
TOTAL RF DURATION: 0 minutes
�
REVERSAL OF HEPARIN: 35 mg of protamine, slow IV administration
�
COMPLICATIONS:
None
Intracardiac US shows no pericardial effusion post ablation.
�
SUMMARY:��
Complex left atrial mapping and ablation.
Isolation of all 4 pulmonary veins as above. Prior to ablation nonsustained atrial tachycardias were seen from the right superior and right inferior pulmonary veins.
�
RECOMMENDATIONS:
1. Admit to monitored bed.��
2. Resume anticoagulation
3.��Consider same-day discharge
4.��Discontinue sotalol
�
Copy to: Dr. Samuel Gaona
�
[2024-06-22 12:59] LABS: Glucose - Point of Care 154 mg/dl (70-99)
--- NOTE | 2024-06-22 15:47 | W.PN.UPDATE ---
Update Note
Progress Note Update
68 yo WM s/p PVI (same day). He denies cp, sob, racheal diet, b/l groins VASCADE, R groin with small ooze after ambulation to BR, manual compression applied and c/d/i soft, no HT, voiding, amb w/o dizziness, EKG SRs. He will continue OAC Eliquis
tonight at home.He will continue diltiazem and metoprolol but stop sotalol. Activity restrictions reviewed. He will f/u Dr. Gaona in 1 mo. He is for d/c home after 4pm if groin stable.
SUMMARY:��
Complex left atrial mapping and ablation.
Isolation of all 4 pulmonary veins as above. Prior to ablation nonsustained atrial tachycardias were seen from the right superior and right inferior pulmonary veins.
�
RECOMMENDATIONS:
1. Admit to monitored bed.��
2. Resume anticoagulation
3.��Consider same-day discharge
4.��Discontinue sotalol
�
Copy to: Dr. Samuel Gaona
== END 2024-06-22 16:15 | disposition home or self-care (01) ==
LOC: CATH 07:58
PROVIDERS: ATTENDING PHYSICIAN Internal Medicine Cardiovascular Disease; FAMILY PHYSICIAN Family Medicine
DX: I47.10 Supraventricular tachycardia, unspecified (principal); R00.2 Palpitations; I48.0 Paroxysmal atrial fibrillation; I25.10 Atherosclerotic heart disease of native coronary artery without angina pectoris; I10 Essential (primary) hypertension; E78.5 Hyperlipidemia, unspecified; E66.9 Obesity, unspecified; Z68.37 Body mass index [BMI] 37.0-37.9, adult; E11.36 Type 2 diabetes mellitus with diabetic cataract; Z79.4 Long term (current) use of insulin; E11.40 Type 2 diabetes mellitus with diabetic neuropathy, unspecified; G47.33 Obstructive sleep apnea (adult) (pediatric); D64.9 Anemia, unspecified; K21.9 Gastro-esophageal reflux disease without esophagitis; M10.9 Gout, unspecified; J45.909 Unspecified asthma, uncomplicated; Z79.899 Other long term (current) drug therapy; Z79.01 Long term (current) use of anticoagulants; Z88.6 Allergy status to analgesic agent; R91.1 Solitary pulmonary nodule
CPT/HCPCS: C1892; C1732; C1894; C1730; C1759; 36415; 75572; 80053; 82962; 83735; 85025; 85347; 85610; 86850; 86900; 86901; 93005; 93656; C1733; C1766; Q9967